=== PATIENT | male | born 1940 | race Caucasian/White ===

== ENCOUNTER 2019-07-08 06:08 | Inpatient (IN) | payer MEDICARE, OTHER, SELFPAY ==
[2019-07-07 12:38] VITALS: BMI 23.6
[2019-07-08] VITALS (31 sets, daily range): BP systolic 81–157; BP diastolic 40–85; PULSE 54–89; RESP 12–20; TEMP 35.6–37.3; O2SAT 93–100; BMI 23.6
--- NOTE | 2019-07-08 | DI.RAD.S_ITS ---
PROCEDURE: XR LUMBAR SPINE 2-3V INDICATIONS: L34, L45 ANT/ POST INSTRUMENTED FUSION W/ BONE GRAFT TECHNIQUE: 2 views of the lumbar spine were acquired. COMPARISON: None. FINDINGS: 2 intraoperative fluoroscopic spot images demonstrate intact transpedicular screws and rods from L3-L5 with disc spacers in place at L3-4 and L4-5. No unexpected fractures. Bone alignment appears normal. IMPRESSION: Expected postoperative change of posterior L3-L5 fusion and disc spacer placement. Dictated by: Lucia Saucedo M.D. on 07/08/2019 at 12:26 Approved by: Lucia Saucedo M.D. on 07/08/2019 at 12:27
[2019-07-08] MEDS: LACTATED RINGERS 1,000 ML 42 ML IV ×3 (06:48→13:36)
--- NOTE | 2019-07-08 07:27 | PM.PREOP ---
Pre-operative Note Interval Note History & Physical reviewed/Exam performed by Physician: Yes Changes to H&P: No
--- NOTE | 2019-07-08 07:49 | P.OP_ITS ---
Operative Date/Time/Diagnoses Date of procedure: 07/08/19 Time of procedure: 12:10 Pre-op diagnosis: Lumbar stenosis with radiculopathy History lumbar laminectomy Post-op diagnosis: same Procedure & Clinicians Procedure: L3-4, L4-5 anterior fusion with cage L3-4, L4-5 posterior fusion L3, L4, L5 screws Iliac crest bone graft L3-4 laminectomy L4-5 revision laminectomy Use of microscope Placement of epidural catheter Same procedure as scheduled: Yes Indications: [age] year old male with intractable pain from stenosis. They had failed conservative management and requested operative intervention. Risks and benefits of surgery were discussed and appropriate consents were obtained. Surgeon: Hal Roberson Senior Technical Editor: Cristina Mcallister Anesthesia Type: General Operative Notes Findings: None Closure Type: primary Specimen(s): none sent Prosthetic devices, grafts, tissues, transplants, or devices: NuVasive MAS Reline screws NuVasive XLIF cages Applied: catheter Blood products transfused: none Procedure in detail: Patient was brought to the operating room and intubated on the table. Time-out was performed. They were then rolled over to the lateral decubitus position with the [id number]. The table was bent and they were taped down in the correct position. X-rays were taken to confirm a true AP and lateral. Preoperative antibiotics were given. The left flank was prepped and draped in standard sterile fashion. Using fluoroscopy, a 3 cm incision was made above the iliac crest. We bluntly dissected down with Metzenbaum scissors and split the 3 abdominal muscle layers. We dissected out the retroperitoneal space and using finger guidance, brought our 1st dilator down to the psoas muscle. Using neuromonitoring and fluoroscopy, we placed it through the psoas onto the L4-5 disc space in an anterior position and gradually pulled the dilator posteriorly along the disc space. We placed our guidewire and measured our depth for the retractor. We then dilated with the next 2 dilators and then placed our retractor over the dilators. Position was confirmed with fluoroscopy and the retractor was locked down to the bar. We opened up the retractor and checked with neuro monitoring. We then placed the michelle and again checked with neuro monitoring. The retractor was opened further and the ALL retractor was placed. An annulotomy was performed. We then performed a complete diskectomy with ring curette, pituitary, box osteotome. A Vogt was advanced across the disc space under fluoroscopy to release the lateral annulus on the opposite side. We then used sequentially larger trials and confirmed under fluoroscopy. An XLIF cage was packed with Osteocell bone graft and impacted into the L4-5 disc space with fluoroscopy for the anterior fusion at this level. The wound was irrigated. The retractor was closed down. The michelle was removed. We carefully removed the retractor with direct visualization to make sure there was no neurovascular or abdominal injury. We then went up to the L3-4 level. We again did dilating and placement of the retractor using neural monitoring and fluoroscopy. We performed a complete anterior diskectomy with lateral release at L3-4. We trialed and then placed another cage with bone graft for the anterior fusion at this level. The wound was irrigated. The retractor was closed down and removed with direct visualization. Final x-rays were taken. The muscle fascia was closed, superficial tissue was closed. The skin was closed. Sterile dressing was placed. The patient was then rolled over on the well-padded prone position on the Terry table. Using fluoroscopy, AP 6 cm incision was made to the left of the midline. Bovie used to split the fascia. We then percutaneously placed Jamshidi needles down the left pedicles of L3, L4, and L5. These were switched out to guidewires, tapped and then the MAS Reline screws were placed, all using neural monitoring and fluoroscopy. We opened up the retractor exposing the L3-5 space. The gutter and lamina were exposed with Bovie. The transverse processes of L3, L4, and L5 were decorticated. We then brought in the microscope. A revision laminectomy was performed at L4-5 with a bur and Kerrison rongeurs. There was medial scar and we could not go much past the midline but completely opened up the left side including the neural foramen. The in the central canal and foramen were open. We then shifted our retractor up to L3-4and performed a L3-4 laminectomy, including the foramen in the entire central canal as we were able to reach across the midline and depress the dura to reach the opposite side. The wound was copiously irrigated. An epidural catheter was primed with 4mL of 0.5% bupivacaine, 100 mcg fentanyl, 4 mg Duramorph, 1 mg Stadol. The dura was depressed under the cephalad lamina with a ball probe and the epidural catheter was gently advanced 6 cm cephalad. The retractor was removed and we then placed our screw heads on. A paige was placed and locked down from L3-5. A small stab incision was made over the PSIS and a Jamshidi needle was placed into the iliac crest and several mL of bone marrow was aspirated. This was mixed with our locally harvested bone graft as well as the remaining Osteocell and placed in the posterolateral gutter for posterior fusion at L3-4 and L4-5. The fascia was then closed. The epidural was then injected without resistance. The catheter was pulled and we closed more over the fascia. We then used fluoroscopy to make a 6 cm incision on the right. Bovie used to split the fascia. We again used fluoroscopy and neuro monitoring to p ercutaneously placed Jamshidi needles down the right pedicles of L3, L4, and L5. These were switched over guidewires, tapped and the MAS Reline screws were placed. A paige was placed and locked down. The wound was irrigated. The fascia was closed. Vancomycin powder was placed in the wounds. The superficial and skin were closed. Sterile dressing was placed. The patient was then rolled over, e xtubated, brought to the recovery room with no complications. Complications: none Condition: stable Disposition: PACU Plan for aftercare: Inpatient. Up with therapy.
[2019-07-08] MEDS: CEFAZOLIN 2 GM/100 ML FROZ.PIGGY IV ×3 (08:03→20:47)
--- NOTE | 2019-07-08 08:52 | SUR.OPER ---
Right lateral on padded OR table. Head on pillow, gel axillary roll, pillow to support left arm. Legs flexed, pillows between legs, gel pad under down leg and ankle. Multiple passes of 3 inch cloth tape across shoulder, hip, upper and lower legs to secure patient on OR table.
--- NOTE | 2019-07-08 08:53 | SUR.OPER ---
part 2:Prone on spine table, head in foam head support, padded chest and pelvic supports, gel pad at knees, lower legs supported by pillows; nipples, genitalia and toes free of pressure, arms secured on foam padded arm boards at <90 degrees abduction. Tape over blanket at thigh secured to table.
[2019-07-08] MEDS: SODIUM CHLORIDE 0.9% 1,000 ML, GENTAMICIN 80 MG IRR ×2 (09:22→10:42)
[2019-07-08] MEDS: BUPIVACAINE 0.5% (PF) 4 ML, MORPHINE-PF 4 MG, BUTORPHANOL 1 MG, fentaNYL 100 MCG INJ (09:23)
[2019-07-08] MEDS: THROMBIN (RECOMBINANT) 5,000 UNIT VIAL 5000 UNIT TOP (09:24)
[2019-07-08] MEDS: VANCOMYCIN 1,000 MG VIAL 1000 MG TOP (09:24)
[2019-07-08] MEDS: LORazepam 2 MG/ML INJ 0.25 MG IV (13:16)
[2019-07-08] MEDS: hydrOXYzine 50 MG/ML INJ 25 MG IM (13:21)
--- NOTE | 2019-07-08 13:27 | SUR.PHASEI ---
Still with marginal BPs related to preop. Recd Dr Da trinh. Mostly sleeping but when awake is with some obvious discomfort. Taking care not to cause circulatory compromise with opiod. Remains in PACU due to VSS. Mer between 7&8.
[2019-07-08] MEDS: fentaNYL 100 MCG/2 ML INJ 50 MCG IV (13:32)
--- NOTE | 2019-07-08 14:29 | PC.NURSE ---
Day Shift-awaiting pt to arrive from PACU, pt's son Jeff in room 217, update given at 1233, pt in PACU for approx 10 mins, Jeff updated by Dr. Roberson in waiting room prior to coming to unit. At 1355, pt's son Jeff updated again as well as VIRIDIANA Herring Coordinator updated Jeff, pt will go to ICU overnight room 104.
[2019-07-08] MEDS: LACTATED RINGERS 1,000 ML 125 ML IV ×2 (14:57→22:43)
--- NOTE | 2019-07-08 14:58 | PC.NURSE ---
pt received from pacu- pt very groggy and will occassionally moan but quickly fall back to sleep- he does not respond verbally as of yet- LR at 125cc/h initiated, , pt preferring to be on left side- dressing to lower left hip area is cdi (graft site) AND CIRCLED APPROX 3CM AREA OF RED DRAINAGE TO LOWER BACK DRESSING- PT DOES HAVE CARDIAC HX AND IS PRESENTLY IN SB WITH BB- SON IS AT BEDSIDE
[2019-07-08] MEDS: HYDROMORPHONE 0.5 MG INJ IV ×4 (15:05→21:15)
--- NOTE | 2019-07-08 15:54 | PT.IPTN ---
Current Diagnoses Spondylolisthesis, lumbar region (07/08/19) Spinal stenosis, lumbar region with neurogenic claudication (07/08/19) Other specified postprocedural states (07/08/19) Surgery Performed Operation Date: 07/08/19 07:45 Actual Procedures p L34, L45 anterior & posterior instrumented fusion w/ bone graft. L34 laminectomy, L45 revision laminectomy - Hal Roberson MD Physical Therapy Treatment Note M3 PT-IP Subjective Start: 07/08/19 15:53 Freq: NEEDED Status: Active Protocol: Document 07/08/19 15:54 [facility] (Rec: 07/08/19 15:54 [facility] [email or web address]) Subjective Physical Therapy Visit Type Type Administrative Note Notes Called RN and they said not appropriate for PT tonight. Pt just got to floor recently and is hurting a lot right now . Re-assess in AM.
[2019-07-08] MEDS: GABAPENTIN 600 MG TABLET PO ×2 (16:13→21:02)
[2019-07-08] MEDS: HYDROMORPHONE 2 MG TABLET PO (16:13)
--- NOTE | 2019-07-08 16:18 | PC.NURSE ---
Addendum entered by Blanca Vail R.N. 07/08/19 23:04: Pt's son called for updates. Completed admission assessment over the phone. All updates given and questions answered. Addendum entered by Blanca Vail R.N. 07/08/19 22:45: Pt sleeping soundly. HR 77, BP 132/59. CPAP on from home. 95% Sats. IVF continues at 125cc/hr via 20g left hand. SCDs on and oral care given. Addendum entered by Blanca Vail R.N. 07/08/19 21:32: Pt repositioned and turned. States he is more comfortable now than before, but unable to rate pain. Pt groggy. Oral care given. Son at bedside and left at 21:05. Answered all questions for son. Discussed plan for tomorrow with PT, pain control for the evening, father's bucio catheter, CPAP, vital signs, adn wound. Dressing changed on back-saturated with sanguinous output. Surgeon ok'd change if saturated. no s/s infection to two incisions- left vaseline gauze in place, placed 3 4x4 on top with large tegaderm and dated/timed. iliac crest site c/d/i with primary dressing intact. Pt has apple juice/cider from son from home in pt fridge. Used for giving medications. Tolerated pills with no issue. Held Sen, pt drowsy. Addendum entered by Blanca Vail R.N. 07/08/19 20:02: [address] home CPAP. Satting 98%. Pt nodded head his pain is improved. Still very sleepy. Addendum entered by Blanca Vail R.N. 07/08/19 19:09: Pt sleeping soundly. HR 90, BP 119/51. 100% on 2LNC. Wakes up to voice and states his pain is better but unable to rate 1-10. Falls asleep while speaking with staff. Turned and rotated to right side with ice pack on incision and pillow supporting length of body. Pillow placed between knees. Addendum entered by Blanca Vail R.N. 07/08/19 17:38: Pt sleeping soundly now after PO Dilaudid, 2nd dose of 0.5mg IV Dilaudid and PO Hydroxyzine. Appears much more comfortable, no wincing, slightly repositioning himself in bed. Occassional moans. HR77, Satting 100% on 2LNC now. Nasal cannula placed after patient had second dose of IV Dilaudid. Sats decreasing to 88 after administration. Original Note: Pt sleeping comfortably with HR 60s adn BP 140s/60s. When woken up for assessment or meds, pt able to verbalize his pain is a 10/10. Repositioned to right side via log roll- ice pack applied to surgical site and pillow placed under back. Given PO Dilaudid as well. Will continue to assess and treat pain. Pt verbalized understandign of pain plan. Surgeon at bedside at 15:45.
[2019-07-08] MEDS: hydrOXYzine pamoate 25 MG CAPSULE PO (16:55)
[2019-07-08] MEDS: DOCUSATE 100 MG CAPSULE PO (21:02)
[2019-07-08] MEDS: AMLODIPINE 5 MG TABLET PO (21:02)
[2019-07-08] MEDS: ATORVASTATIN 20 MG TABLET PO (21:02)
[2019-07-08] MEDS: SENNOSIDES 8.6 MG TABLET 17.2 MG PO (21:03)
[2019-07-09] VITALS (8 sets, daily range): BP systolic 94–161; BP diastolic 43–72; PULSE 68–86; RESP 14–18; TEMP 36.8–38.1; O2SAT 92–98; BMI 23.6
[2019-07-09] MEDS: HYDROMORPHONE 0.5 MG INJ IV ×4 (00:07→11:46)
[2019-07-09] MEDS: CEFAZOLIN 2 GM/100 ML FROZ.PIGGY IV (03:43)
--- NOTE | 2019-07-09 03:51 | PC.NURSE ---
NOC Shift: POD 1 post LAMI. Pt sleeping well with home CPAP, needed O2 supplement when sleeping for sats less than 90. Pt sleeps well until woken up, states when awake his pain is 10/10 yet falls right to sleep in mid sentence. Will give IV pain med when more awake. VSS, SR on tele. Neuro intact. Dsgs CDI.
[2019-07-09] MEDS: hydrOXYzine pamoate 25 MG CAPSULE PO ×2 (04:01→18:18)
[2019-07-09 06:20] LABS: Hematocrit 36.1 % (41-53); Hemoglobin 12.6 g/dL (13.5-17.5)
--- NOTE | 2019-07-09 07:45 | PM.PNPO.1 ---
Subjective Subjective Date Patient Seen: 07/09/19 Time Patient Seen: 07:45 Interval history: Severe pain overnight, but gets sedated with any medication. Almost all back pain. Exam Vital Signs (past 8 hours): - 07/09/19 00:07 07/09/19 00:11 07/09/19 03:32 Temperature 99.1 F 99.1 F 98.2 F Pulse Rate 78 76 Respiratory Rate 14 16 Blood Pressure 140/62 124/65 Pulse Oximetry 94 98 Oxygen Delivery Method CPAP Oxygen Flow Rate 2 Const Orientation: alert and oriented x3 Back/Spine/Pelvis Other: dry moderate drainage on left side of wound, 5/5 motor BLE except 4/5 B hip flexors limited by back pain Objective Labs Result Diagrams: 07/09/19 04:51 Labs: Laboratory Results - last 24 hr 07/08/19 07/09/19 14:30 04:51 Hgb 12.6 L Hct 36.1 L Nasal Screen MRSA (PCR) Negative for mrsa Assessment & Plan Post-op Postoperative Procedures: Procedures Operation Date: 07/08/19 07:45 Actual Procedures Side Surgeon p L34, L45 anterior & posterior instrumented fusion w/ bone graft. L34 laminectomy, L45 revision laminectomy Hal Roberson MD Stable, mobilize with PT today.
[2019-07-09] MEDS: HYDROMORPHONE 2 MG TABLET PO (08:34)
[2019-07-09] MEDS: DOCUSATE 100 MG CAPSULE PO ×2 (08:37→21:04)
[2019-07-09] MEDS: GABAPENTIN 600 MG TABLET PO ×3 (08:37→21:04)
--- NOTE | 2019-07-09 10:35 | PT.IIE ---
Current Diagnoses Spondylolisthesis, lumbar region (07/08/19) Spinal stenosis, lumbar region with neurogenic claudication (07/08/19) Other specified postprocedural states (07/08/19) Surgery Performed Operation Date: 07/08/19 07:45 Actual Procedures p L34, L45 anterior & posterior instrumented fusion w/ bone graft. L34 laminectomy, L45 revision laminectomy - Hal Roberson MD Surgical History (Last Updated 07/07/19 @ 13:19 by Sanjuanita Ac RN) H/O: vasectomy (Acute) History of lumbar laminectomy (Acute ~2008) Hx of colonoscopy (Acute 04/09/19) Hx of right inguinal hernia repair (Acute) Hx of right knee surgery (Acute ~1972) Hx of tonsillectomy (Acute) Medical History (Last Updated 07/07/19 @ 13:44 by Sanjuanita Ac RN) Anxiety about health (Acute) Arthritis (Acute) Asthma (Acute) CAD (coronary artery disease) (Acute) Carotid artery stenosis (Acute) Dizziness (Acute) Easy bruisability (Acute) Edema (Acute) Epididymitis (Acute) GERD (gastroesophageal reflux disease) (Acute) Headache (Acute) Heart murmur (Acute) HLD (hyperlipidemia) (Acute) HTN (hypertension) (Acute) LBBB (left bundle branch block) (Acute) Lower back pain (Acute) Numbness and tingling (Acute) RANGEL on CPAP (Acute) Seasonal allergies (Acute) Syncope (Acute) Testicular pain (Acute) TIA (transient ischemic attack) (Acute) Physical Therapy Inpatient Evaluation/Re-Eval M1 PT/OT-IP Prior Functional Status Start: 07/08/19 15:53 Freq: NEEDED Status: Active Protocol: Document 07/09/19 17:21 (Rec: 07/09/19 18:04 [email or web address]) Medical Review Prior Functional Status Medical History Reviewed Yes Diet/Fluid Consistency Regular Communication able to make needs known. no communication deficits noted. Mobility and Gait Pt's son stated pt was an independent ambulator at home and community without AD. However, his LBP and leg weakness have gotten worse since a month ago that he had to start using furniture/wall/ his son for support recently. He also had difficulty getting up from chair Activities of Daily Living and IADL's Pt's stated pt is independent with ADLs but did need assistance sometimes recently due to worsening back pain. He also started to use sponge bath recently as well. His son also assists in grocery shop and laundry. Social History Household Members children Living Arrangements House Number of Floors (Floors) Two Floors Number of Stairs To Enter/Railing? pt lives on 2nd floor with outdoor stair access only. 12 steps to get to second floor with rails on L Home Environment Standard Height Toilet,Tub/ Shower Employment Status Retired Additional Social History Comment Pt lives with his son Jeff. Jeff works musician instrumental but he stated that pt was independent when he is at work . Jeff will be able to few days off if pt able to return home. M1 PT/OT-IP Prior Functional Status Start: 07/09/19 17:20 Freq: NEEDED Status: Active Protocol: Document 07/09/19 17:20 [facility] (Rec: 07/09/19 17:46 [facility] [id number]) Medical Review Prior Functional Status Medical History Reviewed Yes Communication Independent. Mobility and Gait Independent and did not use any devices. Pt states lately prior to surgery would furniture walk and probably should have been using a device to assist to walk. Pt states would use momentum to help get out of his recliner. When going outside would hold onto his son to walk. Activities of Daily Living and IADL's Pt states able to do all ADl's , however lately just sponge bathes as not able to get into his tub/shower. Social History Household Members children Living Arrangements House Number of Floors (Floors) Two Floors Number of Stairs To Enter/Railing? Pt staets has 20 steps with left hand rail to get up to the deck and tend in to his house. Pt's son states more like 12 steps, however from the car to steps is uneven ground of gravel to walk over. Home Environment Standard Height Toilet,Tub/ Shower M2 PT-IP Current Condition Start: 07/08/19 15:53 Freq: NEEDED Status: Active Protocol: Document 07/09/19 17:21 (Rec: 07/09/19 18:04 [email or web address]) Physical Therapy Current Condition Current Condition Evaluation Date 07/09/19 Treatment Diagnosis L34, L45 XLIF, L34 laminectomy , L45 revision lamiectomy Onset Date 07/08/19 Precautions Lumbar Precautions Log Roll,No Twisting,Limit Bending,Lifting Restriction of 10 lbs,Gait Belt above Incisional Area Weight Bearing Status Weight Bearing Status Weight Bear as Tolerated M3 PT-IP Subjective Start: 07/08/19 15:53 Freq: NEEDED Status: Active Protocol: Document 07/09/19 17:21 (Rec: 07/09/19 18:04 [email or web address]) Subjective Physical Therapy Visit Type Type Initial Evaluation Visit Start Time 10:35 Visit Stop Time 11:44 Total Visit Minutes 69 Notes Per RN, pt has been groggy who just received pain medication . He has been c/o severe pain up to 07/22. Son attended session and answered questions . Co-tx with JARAD Luis this session. Number of CLASSIFICATIONS OFFICER CC/CM Visits 0 Physical Therapy Visit Comments Patient Comments Its very very painful on my back. Patient Goals To return home with son Therapy Pain Assessment Pain When Pain Assessed During Mobility Pain Present Pain Present Pain Reported Location Lower Back Intensity 8 Scale Used Numeric (1 - 10) Description Acute Pain Behaviors Calling Out,Facial Grimacing, Guarding,Holding Area Pain Management Techniques Apply Cold,Modification of Treatment,Timing of Activity with Medications M4 PT-IP Mobility and Gait Start: 07/08/19 15:53 Freq: NEEDED Status: Active Protocol: Document 07/09/19 17:21 (Rec: 07/09/19 18:04 [email or web address]) PT-Bed Mobility Assessment Rolling Type of Rolling Log Rolling,Roll to Left Level of Assist Moderate Assistance,2 Person Assistance Supine to Sit Supine to Sit Maximum Assistance,2 Person Assistance Sit to Supine Sit to Supine Maximum Assistance,2 Person Assistance Scooting Scooting to Edge of Bed Maximum Assistance Scooting Up and Down in Bed Maximum Assistance PT-Transfer Assessment Comments Mobility Comments BP in supine = 120s/60s, sitting = 90s/40s, back in supine =160s/70s. Pt was in supine upon assessment. He was calling out pain with every movements that involves his low back. Pt was unable to perform full heel slides and demonstrated weakness through supine leg press against therapist. He required assistance to placed his feet on bed for log roll and max x 2pa for supine to sit and scooting in bed/EOB. Pt was unable to sit upright unsupported and cont to lean posteriorly to the right. Needed manual support and constant cues to facilitate his abdominal engagement. Pt c /o dizziness and weakness, and his blood pressure remained at 90s/40s after 8 mins in seated position. Pt was then assisted returning to supine with max A. Call light within reach, bed alarm activated and HOB elevated. His BP went up to 161/72 after and reported to nursing. RN Mackenzie requested to call Dr. Roberson regarding pt's pain level and medication management. Gait Assessment Comments Gait Comments unable to assess Stair Climbing Assessment Comments Stair Climbing Comments unable to assess PT-Balance Assessment Sitting Balance and Reactions Static Sitting Balance Ability Fair Dynamic Sitting Balance Ability Poor M5 PT-IP Objective Assessments Start: 07/08/19 15:53 Freq: NEEDED Status: Active Protocol: Document 07/09/19 17:21 (Rec: 07/09/19 18:04 [email or web address]) Orientation Orientation/Cognition Level of Alertness Lethargic Orientation Name,Age,Birthday,Month,Date, Year,Day of Week,Place, Situation Language Function Ability No Deficits Noted Safety Awareness Decreased Safety Awareness Memory Description No Deficits Noted Comments Pt was groggy and forgetful. Gross Range of Motion Upper Extremity ROM Assessment Bilaterally Impaired Impairments unable to reach overhead Lower Extremity ROM Assessment Bilaterally Impaired Impairments unable to do heel slide Strength Upper Extremity Strength Assessment Bilaterally Impaired Shoulder 3-/5 Lower Extremity Strength Assessment Bilaterally Impaired Hip 3-/5 Knee 3-/5 M6 PT-IP Treatment Start: 07/08/19 15:53 Freq: NEEDED Status: Active Protocol: Document 07/09/19 17:21 [facility] (Rec: 07/09/19 18:04 [email or web address]) Physical Therapy Treatment Exercises Exercises Quad Sets,Heel Slides Education Education Provided Precautions,Weight Bearing Status,Post-Op Packet,Safety M7 PT-IP Assessment and Plan Start: 07/08/19 15:53 Freq: NEEDED Status: Active Protocol: Document 07/09/19 17:21 [facility] (Rec: 07/09/19 18:04 [email or web address]) PT Summary Assessment and Plan Potential Rehabilitation Potential Good Status of Condition at Evaluation Evolving Summary Impairments Pain,ROM,Strength,Balance, Cognition,Bed Mobility, Transfers,Gait,Activity Tolerance Assessment Summary Pt is a high complexity due to his post operative response with significant amount of pain and lethargic cognitive stage. Pt's son attended session and concern about amount of pain and also mental status changes with using both PO + IVP Dilaudid. Upon assessment, pt was very groggy and forgetful. He also had difficulty following directions and required simple 1 step commands for mobility. pt required extensive assistance with 2p for bed mobility and supine to sit. Pt was unable to sit unsupportedly and significant weakness on both UEs and LEs noted. Pt experienced hypotension (90s/40s) upon sitting but returned to 160s/ 80s in supine position. Notified RN Mackenzie and she is going to speak with Dr. Roberson regarding pt's status . Discussed with pt's son Jeff regarding pt's current need for rehab in SNF to improve his overall mobility and strength. Goals Bed Mobility Goal Minimal Assistance Transfer Goal Minimal Assistance,Front Wheeled Walker Gait Goal Minimal Assistance,Front Wheel Walker Gait Distance 50 Other Goals Pt has 12 steps to enter 2nd floor with L rail Days to Meet Goals 10 Frequency of Treatment Frequency Of Treatment Twice a Day Treatment Plan Physical Therapy Treatment Plan Bed Mobility Training,Transfer Training,Gait Training, Therapeutic Exercise,Balance Retraining,Post Op Education, Discharge Planning,Hot or Cold Pack,Neuromuscular Re-ed Other Recommendations and Next Treatment monitor vss closely Focus bed mob, transfer as rojelio review precautions Recommendations To Nursing Amount of Assist Needed PT/OT Assist Only Discharge Recommendations PT Discharge Recommendations SNF Rehab Equipment Needed for Home Before if go home: FWW, shower bench, Discharge raised toilet seat.
--- NOTE | 2019-07-09 12:02 | PC.NURSE ---
Addendum entered by Mackenzie Catherine R.N. 07/09/19 15:09: 1500-Enc PO intake, Ensure given, Pt accepts with PO meds, no difficulty. Apprenticeship Consultant into see Pt for poor josselin score. Pt mentation is better this afternoon, Updated POC to include change in pain meds. Addendum entered by Mackenzie Catherine R.N. 07/09/19 14:24: 1400-Pt Not actively turning in bed, will initiate turning schedule q2, POC updated, Drainage to back dressing outlined, and noted approx 3cm area of blanchable redness to bony prominence of spine/just above coccyx. Marked, offloaded pressure. Turn schedule. Diet consult ordered. Enc deep breathing and coughing, Pt needs significant engourement for this Spo2 93% RA, home CPAP at bedside. Original Note: 11Pain control issues Son at bedside during PT, concerns with amount of pain and also mental status changes with using both PO + IVP Dilaudid, Pt is forgetful, and nodding off mid-sentance during assessment by this RN. Minimal work with PT d/t pain control and hypotension while sitting up at the bedside. PT reports total assist needed. Dressing on back assessed and shadow drainage noted, will monitor for changes. Rec'd orders from Dr Roberson. See MAR
[2019-07-09] MEDS: ASPIRIN 325 MG TABLET PO (12:29)
--- NOTE | 2019-07-09 14:30 | PT.IPTN ---
Current Diagnoses Spondylolisthesis, lumbar region (07/08/19) Spinal stenosis, lumbar region with neurogenic claudication (07/08/19) Other specified postprocedural states (07/08/19) Surgery Performed Operation Date: 07/08/19 07:45 Actual Procedures p L34, L45 anterior & posterior instrumented fusion w/ bone graft. L34 laminectomy, L45 revision laminectomy - Hal Roberson MD Physical Therapy Treatment Note M3 PT-IP Subjective Start: 07/08/19 15:53 Freq: NEEDED Status: Active Protocol: Document 07/09/19 16:30 GGD (Rec: 07/09/19 16:37 GGD [email or web address]) Subjective Physical Therapy Visit Type Type Treatment Note Visit Start Time 14:12 Visit Stop Time 14:28 Total Visit Minutes 14 Physical Therapy Visit Comments Patient Comments Pt states he is a lot pain. Therapy Pain Assessment Pain When Pain Assessed At Rest Pain Present Pain Present Pain Reported Location Lower Back Intensity 4 Scale Used Numeric (1 - 10) M4 PT-IP Mobility and Gait Start: 07/08/19 15:53 Freq: NEEDED Status: Active Protocol: Document 07/09/19 16:30 GGD (Rec: 07/09/19 16:37 GGD [email or web address]) PT-Bed Mobility Assessment Rolling Type of Rolling Log Rolling,Roll to Right Level of Assist Moderate Assistance Supine to Sit Supine to Sit Maximum Assistance,1 Person Assistance,Bedrails Sit to Supine Sit to Supine Moderate Assistance,1 Person Assistance,Bedrails Scooting Scooting to Edge of Bed Dependent PT-Transfer Assessment Comments Mobility Comments Unable Pt needed min to Mod A for EOB sitting balance. PT-Balance Assessment Sitting Balance and Reactions Static Sitting Balance Ability Poor M7 PT-IP Assessment and Plan Start: 07/08/19 15:53 Freq: NEEDED Status: Active Protocol: Document 07/09/19 16:30 GGD (Rec: 07/09/19 16:37 GGD [email or web address]) PT Summary Assessment and Plan Summary Assessment Summary Pt needed mod to max a for mobility. He had difficulty following directions. He was unable to recall precautions. He need assist for sitting balance and unable support self after cues. Frequency of Treatment Frequency Of Treatment Twice a Day Treatment Plan Physical Therapy Treatment Plan Bed Mobility Training,Transfer Training,Gait Training, Therapeutic Exercise,Post Op Education,Discharge Planning Other Recommendations and Next Treatment bed mobility, transfers and Focus gait when able Recommendations To Nursing Amount of Assist Needed PT/OT Assist Only Discharge Recommendations PT Discharge Recommendations SNF Rehab
[2019-07-09] MEDS: LACTATED RINGERS 1,000 ML 125 ML IV ×2 (14:35→22:11)
[2019-07-09] MEDS: ACETAMINOPHEN 325 MG TABLET 975 MG PO ×2 (14:42→18:17)
[2019-07-09] MEDS: MELOXICAM 7.5 MG TABLET PO ×2 (14:43→21:04)
--- NOTE | 2019-07-09 14:48 | CM.IDA ---
Initial DCP Assessment Note: Pt is an 79 yo male, resident of [place]. Pt POD#1 from spinal surgery w/Dr Roberson. PCP: Stacy Anguiano Payer: Medicare/Commercial Reviewed chart. Pt has complained of a lot of pain post operatively, today, nursing note indicates pt is groggy, forgetful, and not actively turning himself in bed. Supportive son Jeff at bedside. Son present for PT/OT sessions. OT Janelle reported pt will likely benefit from SNF, son agrees at this time. This SECURITIES SUPERVISOR following closely and will plan to complete thorough bedside assessment w/in the next 24 hrs to help determine safest DCP. ALEJANDRO Russell Discharge Planning/Care Management CM Discharge Assessment Start: 07/09/19 14:44 Freq: Status: Active Protocol: Document 07/09/19 14:44 BARON (Rec: 07/09/19 14:48 BARON [email or web address]) Discharge Planning Assessment Assigned Bobbin Doffer ALEJANDRO Conte DPOA/Assigned Designee Name Jeff (son) Contact Information [phone] Advance Directives? No History Provided By Patient,Family Member,Medical Record Prior Living Arrangements House Household Members children Type of transporation used prior to Drives own vehicle admit Willing to Return to Facility? Yes Independent with ADL's Yes Is patient alert and oriented? Yes Patient/Family Preference Longterm Facility Barriers to Discharge Yes Comment Pain and weakness s/p spinal surgery Discharge Plan Longterm Facility Referrals Initiated Longterm Review Status In Process
--- NOTE | 2019-07-09 17:46 | OT.IP.EVAL ---
Current Diagnoses Spondylolisthesis, lumbar region (07/08/19) Spinal stenosis, lumbar region with neurogenic claudication (07/08/19) Other specified postprocedural states (07/08/19) Surgery Performed Operation Date: 07/08/19 07:45 Actual Procedures p L34, L45 anterior & posterior instrumented fusion w/ bone graft. L34 laminectomy, L45 revision laminectomy - Hal Roberson MD Past Medical History (Last Updated 07/07/19 @ 13:44 by Sanjuanita Ac RN) Anxiety about health (Acute) Arthritis (Acute) Asthma (Acute) CAD (coronary artery disease) (Acute) Carotid artery stenosis (Acute) Dizziness (Acute) Easy bruisability (Acute) Edema (Acute) Epididymitis (Acute) GERD (gastroesophageal reflux disease) (Acute) Headache (Acute) Heart murmur (Acute) HLD (hyperlipidemia) (Acute) HTN (hypertension) (Acute) LBBB (left bundle branch block) (Acute) Lower back pain (Acute) Numbness and tingling (Acute) RANGEL on CPAP (Acute) Seasonal allergies (Acute) Syncope (Acute) Testicular pain (Acute) TIA (transient ischemic attack) (Acute) Surgical History (Last Updated 07/07/19 @ 13:19 by Sanjuanita Ac RN) H/O: vasectomy (Acute) History of lumbar laminectomy (Acute ~2008) Hx of colonoscopy (Acute 04/09/19) Hx of right inguinal hernia repair (Acute) Hx of right knee surgery (Acute ~1972) Hx of tonsillectomy (Acute) Occupational Therapy Inpatient Evaluation/Re-Eval M1 PT/OT-IP Prior Functional Status Start: 07/09/19 17:20 Freq: NEEDED Status: Active Protocol: Document 07/09/19 17:20 [facility] (Rec: 07/09/19 17:46 [facility] [email or web address]) Medical Review Prior Functional Status Medical History Reviewed Yes Communication Independent. Mobility and Gait Independent and did not use any devices. Pt states lately prior to surgery would furniture walk and probably should have been using a device to assist to walk. Pt states would use momentum to help get out of his recliner. When going outside would hold onto his son to walk. Activities of Daily Living and IADL's Pt states able to do all ADl's , however lately just sponge bathes as not able to get into his tub/shower. Social History Household Members children Living Arrangements House Number of Floors (Floors) Two Floors Number of Stairs To Enter/Railing? Pt states has 20 steps with left hand rail to get up to the deck and tend in to his house. Pt's son states more like 12 steps, however from the car to steps is uneven ground of gravel to walk over. Home Environment Standard Height Toilet,Tub/ Shower M2 OT-IP Current Condition Start: 07/09/19 17:20 Freq: Status: Active Protocol: Document 07/09/19 17:20 [facility] (Rec: 07/09/19 17:46 [facility] [email or web address]) Occupational Therapy Current Condition Current Condition Evaluation Date 07/09/19 Treatment Diagnosis Lumbar stenosis with radiculopathy, S/P L3-4, L4-5 ant & post instr. fusion Diagnosis Onset Date 07/08/19 Post Operative Precautions Lumbar Precautions Log Roll,No Twisting,Limit Bending,Lifting Restriction of 10 lbs,Gait Belt above Incisional Area Weight Bearing Status Weight Bearing Status Weight Bear as Tolerated M3 OT- IP Subjective and Pain Start: 07/09/19 17:20 Freq: Status: Active Protocol: Document 07/09/19 17:20 [facility] (Rec: 07/09/19 17:46 [facility] [email or web address]) OT- Subjective Occupational Therapy Visit Type Type Initial Evaluation Visit Start Time 10:34 Visit Stop Time 11:24 Total Visit Minutes 50 Occupational Therapy Visit Comments Patient Comments Pt very groogy but willing to try to get up. Pt a bit frustrated that he is having so much pain. PT present for OT eval due to extensive need for assist for mobility needs at this time. Patient/Caregiver Goals Pt wanting to go home but family aware will most likely have to go to [facility] rehab prior to going home. OT Pain Assessment Pain When Pain Assessed During Mobility Pain Present Pain Present Pain Reported M4 OT- IP ADL's Start: 07/09/19 17:20 Freq: Status: Active Protocol: Document 07/09/19 17:20 [facility] (Rec: 07/09/19 17:46 [facility] [email or web address]) OT HQN-Pohq-Diefdpw Comments OT Self-Feeding Comments Pt taking a sip out of water bottle and noted coughing afterwards, nursing notified. OT ADL-Grooming Comments OT Grooming Comments Pt needing assist to put in hearing aids, intially not able to see chap stick and after placing in his hands able to put chap stick on his lips. OT ADL-Dressing General Eval Lower Body Dressing Ability Maximum Assistance Areas Needing Assistance Socks OT ADL-Toileting Comments OT Toileting Comments Pt has catheter in. OT ADL-Bathing Comments OT Bathing Comments Not at this time. M5 OT- IP IADL's Start: 07/09/19 17:20 Freq: Status: Active Protocol: Document 07/09/19 17:20 [facility] (Rec: 07/09/19 17:46 [facility] [email or web address]) OT-Instrumental Activities of Daily Living Home Safety Awareness Home Safety Comments Prior pt per son completely independent with all needs , however pt now very groogy and having difficulty to follow directions. M6 OT- IP Functional Cognition Start: 07/09/19 17:20 Freq: Status: Active Protocol: Document 07/09/19 17:20 [facility] (Rec: 07/09/19 17:46 [facility] [email or web address]) Cognitive Factors Limiting Selfcare Function Cognitive Ability Level of Alertness Drowsy Patient Orientation Name Attention Span Ability Capable of Focused Attention, Unable to Sustain Attention Ability to Follow Commands Able to Follow One Step Commands with Increased Time, Able to Follow One Step Commands with Repetition Cognitive Comments Cognitive Assessment Comments Pt very groggy and having difficulty to follow directions and needed step by step simple commands. OT- Vision and Hearing OT- Hearing Assessment OT- Hearing Assessment Use of Hearing Aids OT- Vision Assessment Vision Assessment Comments Pt noted decreased depth perception and reaching for therapist finger versus chap stick. Pt very groggy and sleepy therefore may also be influencing his vision at this time. M7 OT- IP Mobility and Balance Start: 07/09/19 17:20 Freq: Status: Active Protocol: Document 07/09/19 17:20 [facility] (Rec: 07/09/19 17:46 [facility] [email or web address]) OT- Bed Mobility Assessment Rolling Level of Assistance Maximum Assistance,2 Person Assistance,Bedrails Supine to Sit Supine to Sit Assist Maximum Assistance,2 Person Assistance Sit to Supine Sit to Supine Assist Maximum Assistance,2 Person Assistance Scooting Scooting to Edge of Bed Maximum Assistance,2 Person Assistance Scooting Up and Down in Bed Maximum Assistance,2 Person Assistance OT-Transfer Assessment Comments Mobility Comments MAX A x 2 for bed mobility needs assist to help with his trunk and legs. Pt needing MODA to help sit upright and starting to feel dizzy and BP decreased 85/46. Assisted pt to get back in to bed and help to reposition pt with pillows . BP increased to 160/80 in supine. OT- Balance Assessment Sitting Balance and Reactions Static Sitting Balance Ability Poor Dynamic Sitting Balance Ability Poor M8 OT- IP Objective Assessments Start: 07/09/19 17:20 Freq: Status: Active Protocol: Document 07/09/19 17:20 [facility] (Rec: 07/09/19 17:46 [facility] [email or web address]) OT Gross Range of Motion Upper Extremity Range of Motion ROM Impairments Not able to fully assess at this time. Comments Strength Comments Not able to fully assess at this time. OT-Muscle Tone Assessment Muscle Tone WNL Yes M9 OT- IP Assessment and Plan Start: 07/09/19 17:20 Freq: Status: Active Protocol: Document 07/09/19 17:20 [facility] (Rec: 07/09/19 17:46 [facility] [email or web address]) OT Summary Assessment and Plan Potential Rehabilitation Potential Fair Analytic Complexity at Evaluation Low Summary OT Impairments Pain,Strength,Balance, Functional Cognition, Functional Mobility,Self- Feeding,Grooming,Dressing, Toileting,Bathing,Toilet Transfers,Shower Transfers Progress Towards Goals Slow Progress due to Pain,Slow Progress due to Medical Issues,Slow Progress due to Activity Tolerance,Slow Progress due to Cognition Assessment Summary Pt low complexity and main barriers are steps, pain, and now needing extensive assist x2 for all needs and only able to tolerate sitting to the edge of the bed at this time. Pt's son works during the day and pt far from baseline of being MOD I with all needs. Pt will benefit from [facility] rehab prior to going home. Goals Self-Feeding Goal Standby Assistance Grooming Goal Minimal Assistance Dressing Goal Moderate Assistance Toileting Goal Moderate Assistance Bathing Goal Moderate Assistance Toilet Transfer Goal Moderate Assistance Shower Transfer Goal Moderate Assistance Patient/Caregiver Education Goal Caregiver Independent Assisting Patient OT-Other Goals Grooming goal in standing with FWW. Days to Meet Goals 10 Frequency of Treatment Frequency Of Treatment Once a Day Treatment Plan OT Treatment Plan ADL Training,Functional Cognition Training,Functional Mobility,Patient/Family Education,Discharge Planning Other Treatment Recommendations and Next Transfer with FWW with MODA X Treatment Focus 2 to BSC. Discharge Recommendations OT Discharge Recommendations SNF Rehab Home Equipment Needs Defer to SNF.
[2019-07-09] MEDS: OXYCODONE IR 10 MG TABLET PO (18:18)
[2019-07-09] MEDS: ATORVASTATIN 20 MG TABLET PO (21:04)
[2019-07-09] MEDS: SENNOSIDES 8.6 MG TABLET 17.2 MG PO (21:04)
[2019-07-10] VITALS (7 sets, daily range): BP systolic 109–160; BP diastolic 59–86; PULSE 68–86; RESP 16–20; TEMP 36.8–38; O2SAT 92–94
[2019-07-10] MEDS: ACETAMINOPHEN 325 MG TABLET 975 MG PO ×3 (01:25→20:56)
[2019-07-10] MEDS: hydrOXYzine pamoate 25 MG CAPSULE PO (01:26)
[2019-07-10] MEDS: OXYCODONE IR 10 MG TABLET PO ×3 (01:26→16:39)
--- NOTE | 2019-07-10 01:49 | PC.NURSE ---
Solder Cream Maker Note: 0000: Awake, resting in bed. Vital signs stable. IV in place in rt wrist with LR infusing at 125cc/hr. Dressing to lower back intact, with shadow of old drainage. Home CPAP on, with O2 bleed-in of 2L. SCDs on. 0120: Pt having pain in lower back. Medicated for pain with Oxycodone and Vistaril.
[2019-07-10] MEDS: LACTATED RINGERS 1,000 ML 125 ML IV (06:26)
--- NOTE | 2019-07-10 08:05 | P.PN_ITS ---
Subjective Subjective Date Patient Seen: 07/10/19 Time Patient Seen: 08:05 Interval history: He did better with pain control on the oxycodone. However, he is still somewhat confused. He has been very slow to mobilize and yesterday therapy could only get him to sit by the side of the bed. He complains of significant pain across the lower back. Exam Vital Signs (past 8 hours): - 07/10/19 00:27 07/10/19 04:30 07/10/19 07:31 Temperature 98.8 F 98.8 F 100.4 F H Pulse Rate 68 71 69 Respiratory Rate 20 20 18 Blood Pressure 136/86 109/65 144/64 H Pulse Oximetry 92 92 92 Oxygen Delivery Method CPAP Oxygen Flow Rate 6 Const Orientation: alert and oriented x3 Back/Spine/Pelvis Other: 5/5 motor both lower extremities. Moderate dry drainage on dressing Objective Labs Result Diagrams: 07/09/19 04:51 Assessment & Plan Post-op Postoperative Procedures: Procedures Operation Date: 07/08/19 07:45 Actual Procedures Side Surgeon p L34, L45 anterior & posterior instrumented fusion w/ bone graft. L34 laminectomy, L45 revision laminectomy Hal Roberson MD He has had some postoperative delirium, most likely secondary to the narcotics. We are going to continue to wean back on pain medication today. Mobilize with physical therapy. Consider half-way upon discharge if needed.
--- NOTE | 2019-07-10 08:11 | PC.NURSE ---
Addendum entered by Mackenzie Catherine R.N. 07/10/19 13:04: Report given to Guillermina for transfer to Rm 225. Wheeled up with belongings, including bilat SAUNDERS's and glasses, home CPAP. Medicated for pain prior to transfer and bucio removed @ 1130am. Updated assessment of skin to include blistering around Tegaderm on back, island dressing placed @ 1100 07/10/19 Multiple areas of weeping from dressing change. Addendum entered by Mackenzie Catherine R.N. 07/10/19 11:37: 1130-Per Son, Pt has not been taknig gabapentin at home, we will hold and evaluate effect on mentation. Addendum entered by Mackenzie Catherine R.N. 07/10/19 10:51: 1045-As morning progresses, Pt is more alert, and confusion decreases, forgetful at times, usually when first woke. PT into see Pt and with assist, able to stand and ambulate from bed to chair. Rates pain prior to movement 4/10. Facial grimace noted with movement, but Pt agrees with POC and will continue to go lightly with narcotics, to keep up with improved mentation. Update provided to monse Maldonado. Original Note: AM Shift Pt is noted with significant confusion this AM, What's going on with the house, who let you in? Reoriented Pt to Hospital, clearly will need continued reorientation, remains confused about staff. Dr Roberson into see Pt, discussed POC, plan to scale back on narcotics as this is making confusion worse, and Pt must get OOB today, as this is PO day 2.
[2019-07-10] MEDS: CHLORTHALIDONE 25 MG TABLET PO (09:05)
[2019-07-10] MEDS: ASPIRIN 325 MG TABLET PO (09:05)
[2019-07-10] MEDS: DOCUSATE 100 MG CAPSULE PO ×2 (09:06→20:57)
[2019-07-10] MEDS: MELOXICAM 7.5 MG TABLET PO ×2 (09:08→20:57)
[2019-07-10] MEDS: GABAPENTIN 600 MG TABLET PO (09:08)
--- NOTE | 2019-07-10 09:25 | PT.IPTN ---
Current Diagnoses Spondylolisthesis, lumbar region (07/08/19) Spinal stenosis, lumbar region with neurogenic claudication (07/08/19) Other specified postprocedural states (07/08/19) Surgery Performed Operation Date: 07/08/19 07:45 Actual Procedures p L34, L45 anterior & posterior instrumented fusion w/ bone graft. L34 laminectomy, L45 revision laminectomy - Hla Roberson MD Physical Therapy Treatment Note M3 PT-IP Subjective Start: 07/08/19 15:53 Freq: NEEDED Status: Active Protocol: Document 07/10/19 09:25 GGD (Rec: 07/10/19 11:51 GGD [email or web address]) Subjective Physical Therapy Visit Type Type Treatment Note Visit Start Time 09:00 Visit Stop Time 09:25 Total Visit Minutes 25 Number of BOX FOLDING MACHINE OPERATOR Visits 2 Physical Therapy Visit Comments Patient Comments Pt willing to work with therapy. Therapy Pain Assessment Pain When Pain Assessed During Mobility Pain Present Pain Present Pain Reported Location Lower Back Intensity 10 Scale Used Numeric (1 - 10) Pain Management Techniques Modification of Treatment,Re- positioning,Timing of Activity with Medications M4 PT-IP Mobility and Gait Start: 07/08/19 15:53 Freq: NEEDED Status: Active Protocol: Document 07/10/19 09:25 GGD (Rec: 07/10/19 11:51 GGD [email or web address]) PT-Bed Mobility Assessment Rolling Type of Rolling Log Rolling,Roll to Left Level of Assist Minimal Assistance Supine to Sit Supine to Sit Maximum Assistance,1 Person Assistance,Bedrails Scooting Scooting to Edge of Bed Minimal Assistance PT-Transfer Assessment Sit to and From Stand Sit to and from Stand Contact Guard Assistance,2 Person Assistance,Use of Upper Extremities Equipment Transfer Assistive Device Gait Belt,Front Wheeled Walker Transfers Transfer Destination Chair Transfer Ability Level of Assist Moderate Assistance,2 Person Assistance,Use of Upper Extremities Gait Assessment Gait Gait Assistance Required: Moderate Assistance,2 Person Assist Distance (Feet) 5 Able to Maintain Weight Bearing Status Yes During Gait Assistive Devices Assistive Device Gait Belt,Front Wheeled Walker Orthotic/Prosthetic Devices or Brace: No Gait Deviations General Gait Pattern Antalgic,Decreased Stride Length,Decreased Feet Clearance,Step-to Gait Factors Limiting Gait Function Factors Limiting Gait Function Decreased Activity Tolerance, Decreased Strength,Difficulty Following Directions,Pain,Poor Balance,Poor Safety Awareness M6 PT-IP Treatment Start: 07/08/19 15:53 Freq: NEEDED Status: Active Protocol: Document 07/10/19 09:25 GGD (Rec: 07/10/19 11:51 GGD [email or web address]) Physical Therapy Treatment Other Treatments Other Treatment Performed Pt unable to recall back precautions. M7 PT-IP Assessment and Plan Start: 07/08/19 15:53 Freq: NEEDED Status: Active Protocol: Document 07/10/19 09:25 GGD (Rec: 07/10/19 11:51 GGD [email or web address]) PT Summary Assessment and Plan Summary Assessment Summary Pt improved with rolling in bed. He needed less assist for EOB sitting balance. He was CGA for sit to stand from a high bed. HE was able to ambulate short distance with mod A and small step to gait pattern. He had difficulty following directions. He unable to recall precautions. Frequency of Treatment Frequency Of Treatment Twice a Day Treatment Plan Physical Therapy Treatment Plan Bed Mobility Training,Transfer Training,Gait Training, Therapeutic Exercise,Post Op Education,Discharge Planning Other Recommendations and Next Treatment bed mobility, transfers and Focus gait when able Recommendations To Nursing Amount of Assist Needed 2 Person Assist Discharge Recommendations PT Discharge Recommendations SNF Rehab
[2019-07-10] MEDS: OXYCODONE IR 5 MG TABLET PO ×2 (11:45→20:57)
--- NOTE | 2019-07-10 13:25 | OT.IP.TRT ---
Current Diagnoses Spondylolisthesis, lumbar region (07/08/19) Spinal stenosis, lumbar region with neurogenic claudication (07/08/19) Other specified postprocedural states (07/08/19) Surgery Performed Operation Date: 07/08/19 07:45 Actual Procedures p L34, L45 anterior & posterior instrumented fusion w/ bone graft. L34 laminectomy, L45 revision laminectomy - Hal Roberson MD Occupational Therapy Treatment Note M2 OT-IP Current Condition Start: 07/09/19 17:20 Freq: Status: Active Protocol: Document 07/09/19 17:20 [facility] (Rec: 07/09/19 17:46 [facility] [id number]) Occupational Therapy Current Condition Current Condition Evaluation Date 07/09/19 Treatment Diagnosis Lumbar stenosis with radiculopathy, S/P L3-4, L4-5 ant & post instr. fusion Diagnosis Onset Date 07/08/19 Post Operative Precautions Lumbar Precautions Log Roll,No Twisting,Limit Bending,Lifting Restriction of 10 lbs,Gait Belt above Incisional Area Weight Bearing Status Weight Bearing Status Weight Bear as Tolerated M3 OT- IP Subjective and Pain Start: 07/09/19 17:20 Freq: Status: Active Protocol: Document 07/10/19 13:02 [facility] (Rec: 07/10/19 13:25 [facility] [id number]) OT- Subjective Occupational Therapy Visit Type Type Treatment Note Visit Start Time 09:00 Visit Stop Time 09:25 Total Visit Minutes 39 Notes Also seen from [id number] Occupational Therapy Visit Comments Patient Comments Pt very sleepy but willing to try to get up. OT Pain Assessment Pain When Pain Assessed During Mobility Pain Present Pain Present Pain Reported Location Lower Back Intensity 8 Scale Used Numeric (1 - 10) M4 OT- IP ADL's Start: 07/09/19 17:20 Freq: Status: Active Protocol: Document 07/10/19 13:02 [facility] (Rec: 07/10/19 13:25 [facility] [id number]) OT [id number] Comments OT Self-Feeding Comments Noted while taking medication with water, pt coughing, nursing notified. OT ADL-Grooming General Evaluation Grooming Ability Standby Assistance Areas Needing Assistance Retrieving/Set-up of Grooming Items Comments OT Grooming Comments Pt very groggy and needing vc to sequence through task of brushing his teeth as falling asleep and decreased alertness , vc to take off tooth paste cap , picking machine operator cup to rinse his mouth out, vc to find wash cloth in front of him to wash his face. OT ADL-Oral Care General Eval Oral Care Ability Standby Assistance Areas of Assistance Retrieving/Set-Up of Items OT ADL-Toileting Comments OT Toileting Comments Pt has catheter in. OT ADL-Bathing Comments OT Bathing Comments Not at this time. M5 OT- IP IADL's Start: 07/09/19 17:20 Freq: Status: Active Protocol: Document 07/09/19 17:20 [facility] (Rec: 07/09/19 17:46 [facility] [id number]) OT-Instrumental Activities of Daily Living Home Safety Awareness Home Safety Comments Prior pt per son completely independent with all needs , however pt now very groggy and having difficulty to follow directions. M6 OT- IP Functional Cognition Start: 07/09/19 17:20 Freq: Status: Active Protocol: Document 07/10/19 13:02 [facility] (Rec: 07/10/19 13:25 [facility] [id number]) Cognitive Factors Limiting Selfcare Function Cognitive Ability Level of Alertness Alert,Confusional State,Drowsy Patient Orientation Name Attention Span Ability Capable of Focused Attention, Unable to Sustain Attention Ability to Follow Commands Able to Follow One Step Commands with Increased Time, Able to Follow One Step Commands with Repetition Memory Description Short Term Impaired Cognitive Comments Cognitive Assessment Comments Pt continues to need step by step instructions for ADl and functional mobility needs. Pt is very groggy. Pt not able to recall any back precautions after several times of education in the session. Pt eventually able to recall back precautions after given visual cues. OT- Vision and Hearing OT- Vision Assessment Vision Assessment Comments Pt doing better today to reach for items and feels that he is seeing better today. M7 OT- IP Mobility and Balance Start: 07/09/19 17:20 Freq: Status: Active Protocol: Document 07/10/19 13:02 [facility] (Rec: 07/10/19 13:25 [facility] [id number]) OT- Bed Mobility Assessment Supine to Sit Supine to Sit Assist Maximum Assistance,1 Person Assistance OT-Transfer Assessment Sit to and From Stand Sit to and from Stand Contact Guard Assistance,2 Person Assistance Transfers Transfer Ability Moderate Assistance,2 Person Assistance Technique Transfer Destination Chair Transfer Technique Stand Step Pivot Devices Transfer Assistive Devices Gait Belt,Front Wheeled Walker Comments Mobility Comments Pt tolerating bed mobility better today and MAX A X 1, pt able to sit to edge of bed after help with SBA today. CGA x2 to stand from high bed and will need more assist to stand from recliner MODA x2. Pt able to take a few steps forwards and MODA X 2 and then having to sit down to the recliner. OT- Balance Assessment Sitting Balance and Reactions Static Sitting Balance Ability Fair M8 OT- IP Objective Assessments Start: 07/09/19 17:20 Freq: Status: Active Protocol: Document 07/09/19 17:20 [facility] (Rec: 07/09/19 17:46 [facility] [id number]) OT Gross Range of Motion Upper Extremity Range of Motion ROM Impairments Not able to fully assess at this time time. OT Strength Comments Strength Comments Not able to fully assess at this time. OT-Muscle Tone Assessment Muscle Tone WNL Yes M9 OT- IP Assessment and Plan Start: 07/09/19 17:20 Freq: Status: Active Protocol: Document 07/10/19 13:02 [facility] (Rec: 07/10/19 13:25 [facility] [id number]) OT Summary Assessment and Plan Potential Rehabilitation Potential Good Summary OT Impairments Pain,Strength,Balance, Functional Cognition, Functional Mobility,Self- Feeding,Grooming,Dressing, Toileting,Bathing,Toilet Transfers,Shower Transfers Progress Towards Goals Slow Progress due to Activity Tolerance,Slow Progress due to Cognition Assessment Summary Pt able to tolerate getting out of bed to take a few steps to the recliner with FWW and MODA X 2 today. Pt still very groggy , decreased safety awareness, and ability to follow directions which main be form pain medications, nursing aware. Pt will benefit from skilled rehab prior to going home to continue to work on safety awarenes, independence for ADl 's and functional mobility. Goals Self-Feeding Goal Standby Assistance Grooming Goal Minimal Assistance Dressing Goal Minimal Assistance Toileting Goal Minimal Assistance Bathing Goal Moderate Assistance Toilet Transfer Goal Minimal Assistance Shower Transfer Goal Moderate Assistance Patient/Caregiver Education Goal Caregiver Independent Assisting Patient Days to Meet Goals 10 Frequency of Treatment Frequency Of Treatment Once a Day Treatment Plan OT Treatment Plan ADL Training,Functional Cognition Training,Functional Mobility,Patient/Family Education,Discharge Planning Other Treatment Recommendations and Next Standing at sink from grooming Treatment Focus needs with FWW and LOPEZ. Discharge Recommendations OT Discharge Recommendations SNF Rehab Home Equipment Needs Defer to SNF.
--- NOTE | 2019-07-10 13:26 | PC.NURSE ---
Day shift: Pt on AC unit from ICU at approx 1200. Oriented to room and call light. Agrees to not get OOB w/o help from staff. Dressing is CDI. SCD's applied. Blank was taken out in ICU just before transfer. Pt is yet to void post Blank. Call light in reach. Reports pain 02/19. Instructed on I.S. use. Son in room for support.
--- NOTE | 2019-07-10 14:03 | DIET.PN ---
Dietary Progress Note Assessment: 79y M 1d s/p procedure for Lumbar stenosis with radiculopathy Pt moved to acute care, was sitting c son. Pt was still a bit groggy but enjoying lunch and pleasant. Pt ate 50% breakfast, 100% shake and over 50% lunch. He stated he was ready to eat. Pt's son reports reported wt loss in MNA was due to retained fluid in legs which was removed via diuretics (~10#). States pt has always been on the thin side. HT: 180.3cm WT: 76.6kg BMI: 23.6 Nutrition Diagnosis: Inadequate protein intake r/t increased needs with wound healing aeb 1d s/p open lumbar procedure, pt too groggy for adequate POs yesterday. Interventions: Continue c Protein smoothie with jasiel bid for wound healing and increased PRO providing 42% EER PRO. With better POs today, pt likely attaining EERs with this regimen. EERs: 1800kcal, 85g PRO (1.1g/kg), 2.3 L fluids Monitoring/Evaluations: POs, wt, wound healing
--- NOTE | 2019-07-10 15:01 | CM.DPNOTE ---
DCP Cont: Reviewed chart. Attempted to meet w/pt and he remains quite confused and groggy. LM for son Joel this morning and later got in touch. Explained RADAR SCIENTIST role and discussed therapy recommendation for SNF. Mesfin Maldonado agrees and this RADAR SCIENTIST reviewed the Medicare SNF choice list by phone. [facility] 2. [facility] Faxed referral to [facility] in hopes of securing a SNF bed for Sunday or Sunday. Following closely. ALEJANDRO Russell
--- NOTE | 2019-07-10 16:27 | PT.IPTN ---
Current Diagnoses Spondylolisthesis, lumbar region (07/08/19) Spinal stenosis, lumbar region with neurogenic claudication (07/08/19) Other specified postprocedural states (07/08/19) Surgery Performed Operation Date: 07/08/19 07:45 Actual Procedures p L34, L45 anterior & posterior instrumented fusion w/ bone graft. L34 laminectomy, L45 revision laminectomy - Hal Roberson MD Physical Therapy Treatment Note M3 PT-IP Subjective Start: 07/08/19 15:53 Freq: NEEDED Status: Active Protocol: Document 07/10/19 16:18 AW (Rec: 07/10/19 16:27 AW [id number]) Subjective Physical Therapy Visit Type Type Treatment Note Visit Start Time 15:08 Visit Stop Time 15:36 Total Visit Minutes 28 Number of BRIM WELT SEWING MACHINE OPERATOR Visits 0 Physical Therapy Visit Comments Patient Comments Pt drowsy but willing to work with PT. Therapy Pain Assessment Pain When Pain Assessed During Mobility Pain Present Pain Present Pain Reported Location Lower Back Intensity 5 Scale Used Numeric (1 - 10) Pain Management Techniques Modification of Treatment,Re- positioning,Timing of Activity with Medications M4 PT-IP Mobility and Gait Start: 07/08/19 15:53 Freq: NEEDED Status: Active Protocol: Document 07/10/19 16:18 AW (Rec: 07/10/19 16:27 AW [id number]) PT-Bed Mobility Assessment Rolling Type of Rolling Log Rolling,Roll to Left Level of Assist Minimal Assistance Supine to Sit Supine to Sit Moderate Assistance,1 Person Assistance,Bedrails Scooting Scooting to Edge of Bed Minimal Assistance PT-Transfer Assessment Sit to and From Stand Sit to and from Stand Minimal Assistance,1 Person Assistance,Use of Upper Extremities Equipment Transfer Assistive Device Gait Belt,Front Wheeled Walker Transfers Transfer Destination Chair Transfer Ability Level of Assist Moderate Assistance,1 Person Assistance,Use of Upper Extremities Comments Mobility Comments Decreased level of assist this session, requiring mod assist x 1 at most. Gait Assessment Gait Gait Assistance Required: Minimum Assistance,1 Person Assist Distance (Feet) 20 Able to Maintain Weight Bearing Status Yes During Gait Assistive Devices Assistive Device Gait Belt,Front Wheeled Walker Orthotic/Prosthetic Devices or Brace: No Gait Deviations General Gait Pattern Antalgic,Decreased Stride Length,Decreased Feet Clearance,Step-to Gait Factors Limiting Gait Function Factors Limiting Gait Function Decreased Activity Tolerance, Decreased Strength,Difficulty Following Directions,Pain,Poor Balance,Poor Safety Awareness M6 PT-IP Treatment Start: 07/08/19 15:53 Freq: NEEDED Status: Active Protocol: Document 07/10/19 16:18 AW (Rec: 07/10/19 16:27 AW [id number]) Physical Therapy Treatment Other Treatments Other Treatment Performed Pt continues to be unable to recall back precautions M7 PT-IP Assessment and Plan Start: 07/08/19 15:53 Freq: NEEDED Status: Active Protocol: Document 07/10/19 16:18 AW (Rec: 07/10/19 16:27 AW [id number]) PT Summary Assessment and Plan Summary Assessment Summary Pt able to communicate more clearly this afternoon with improved mentation. Pain significantly decreased since this morning, allowing decreased level of assist for bed mobility, transfers, and gait. Gait distance improved with good potential to advance further at next session. PT recommends SNF rehab due to severity of functional limitations and barrier of 12 stairs to enter home. Goals Bed Mobility Goal Minimal Assistance Transfer Goal Minimal Assistance,Front Wheeled Walker Gait Goal Minimal Assistance,Front Wheel Walker Gait Distance 50 Other Goals Pt has 12 steps to enter 2nd floor with L rail Days to Meet Goals 8 Frequency of Treatment Frequency Of Treatment Twice a Day Treatment Plan Physical Therapy Treatment Plan Bed Mobility Training,Transfer Training,Gait Training, Therapeutic Exercise,Post Op Education,Discharge Planning Recommendations To Nursing Amount of Assist Needed 2 Person Assist Discharge Recommendations PT Discharge Recommendations SNF Rehab
[2019-07-10] MEDS: ONDANSETRON 4 MG/2 ML INJ IV (19:30)
[2019-07-10] MEDS: SENNOSIDES 8.6 MG TABLET 17.2 MG PO (20:57)
[2019-07-10] MEDS: AMLODIPINE 5 MG TABLET PO (20:57)
[2019-07-10] MEDS: ATORVASTATIN 20 MG TABLET PO (20:57)
[2019-07-11] MEDS: OXYCODONE IR 5 MG TABLET PO ×2 (00:44→08:59)
[2019-07-11] MEDS: ACETAMINOPHEN 325 MG TABLET 975 MG PO ×3 (05:38→21:20)
--- NOTE | 2019-07-11 05:43 | PC.NURSE ---
Gave patient prune juice with his scheduled medication, since no BM since . At my shift beginning I outlined the scant shadowing. By 399 shadowing had moved beyond drawn boundaries. Has minimal pain, has been able to void this shift using the urinal.
[2019-07-11 05:47] VITALS: BP 158/76; PULSE 89; RESP 16; TEMP 37; O2SAT 93
--- NOTE | 2019-07-11 08:06 | DI.CT.S_ITS ---
PROCEDURE: CT LUMBAR SPINE WO CON INDICATIONS: LBP, BLE pain, post surgery TECHNIQUE: Noncontrast 3 mm thick sections acquired from the T12 level to the sacrum. Sagittal and coronal reformats were constructed. For radiation dose reduction, the following was used: automated exposure control. COMPARISON: [facility], CR, XR LUMBAR SPINE 2-3V, 07/08/2019, 8:53. Lesion is without side MRI dated 12/13/18. FINDINGS: Image quality: Excellent. Bones: There is normal bony alignment. No acute vertebral body compression fractures. No suspicious lytic or blastic bony lesions. Central spinal caliber is of normal overall caliber. No pars defects. Postoperative changes are seen, with bilateral pedicle screws at the L3, L4, and L5 levels. The screws appear well placed. Vertical fixation rods are seen. Disc spacers are seen at L3-L4 and L4-L5. No findings of hardware failure or hardware loosening are seen. There has been removal of portions of the posterior elements. Bone grafting material is noted. T12-L1: No significant abnormality is seen. L1-L2: Level within normal limits. L2-L3: The disc height is well preserved. Mild to moderate disc bulge is seen. [id number]-gtcbujar bilateral neural foraminal narrowing is seen. L3-L4: Postoperative changes are seen at this level. The disc height is well-preserved. Moderate generalized disc bulge is seen. Moderate bilateral neural foraminal narrowing is seen. No significant central canal narrowing is seen. The degree of central canal narrowing is clearly improved compared to the preoperative MRI. L4-L5: Postoperative changes at this level. Mild to moderate disc bulge is seen. Moderate bilateral neural foraminal narrowing is seen, right worse than left and no significant central male narrowing is seen. There has been improvement in the degree of central canal narrowing compared to the preoperative MRI. L5-S1: Severe loss of disc height is seen, with bridging of endplate osteophytes at this level. There is moderate to severe right-sided and moderate left-sided neural foraminal narrowing seen. Mild central canal narrowing is seen. Soft tissues: Retroperitoneal and paraspinous gas can be seen, which is consistent with the recent surgery. No retroperitoneal masses or hematomas. Visualized aorta is normal in caliber. Atherosclerotic calcification is noted. IMPRESSION: L3-L5 postoperative change within normal limits. The degree of central canal narrowing within the postoperative region is clearly improved compared to the preoperative MRI. Dictated by: Alex Gaitan M.D. on 07/11/2019 at 11:19 Approved by: Alex Gaitan M.D. on 07/11/2019 at 11:25
--- NOTE | 2019-07-11 08:07 | PM.PNPO.1 ---
Subjective Subjective Date Patient Seen: 07/11/19 Time Patient Seen: 08:07 Interval history: Patient is still very limited. He his pain is better down to about a 6/10 right now but he reports that is not only his back but also going down the sides of both legs. Has some confusion last night with medication. Exam Vital Signs (past 8 hours): - 07/11/19 05:47 Temperature 98.6 F Pulse Rate 89 Respiratory Rate 16 Blood Pressure 158/76 H Pulse Oximetry 93 Oxygen Delivery Method CPAP Oxygen Flow Rate 6 Const Orientation: alert and oriented x3 Back/Spine/Pelvis Other: Moderate drainage on left-side of dressing. 5/5 motor both lower extremities although limited by pain Objective Labs Result Diagrams: 07/09/19 04:51 Assessment & Plan Post-op Postoperative Procedures: Procedures Operation Date: 07/08/19 07:45 Actual Procedures Side Surgeon p L34, L45 anterior & posterior instrumented fusion w/ bone graft. L34 laminectomy, L45 revision laminectomy Hal Roberson MD he is progressing very slowly and now is complaining of increasing leg pain. I am going to get a CT scan of his lumbar spine today to evaluate the surgical site. I think he is probably looking at skilled rehab in the next day or so as he is not progressing. We are going to try to cut back on his pain medication to prevent confusion.
[2019-07-11 08:28] VITALS: BP 143/72; PULSE 84; RESP 18; TEMP 36.8; O2SAT 92
[2019-07-11] MEDS: ASPIRIN 325 MG TABLET PO (08:59)
[2019-07-11] MEDS: MELOXICAM 7.5 MG TABLET PO ×2 (08:59→19:55)
[2019-07-11] MEDS: DOCUSATE 100 MG CAPSULE PO ×2 (08:59→19:54)
[2019-07-11] MEDS: CHLORTHALIDONE 25 MG TABLET PO (09:00)
--- NOTE | 2019-07-11 10:35 | PT.IPTN ---
Current Diagnoses Spondylolisthesis, lumbar region (07/08/19) Spinal stenosis, lumbar region with neurogenic claudication (07/08/19) Other specified postprocedural states (07/08/19) Surgery Performed Operation Date: 07/08/19 07:45 Actual Procedures p L34, L45 anterior & posterior instrumented fusion w/ bone graft. L34 laminectomy, L45 revision laminectomy - Hal Roberson MD Physical Therapy Treatment Note M3 PT-IP Subjective Start: 07/08/19 15:53 Freq: NEEDED Status: Active Protocol: Document 07/11/19 10:26 (Rec: 07/11/19 10:34 [id number]) Subjective Physical Therapy Visit Type Type Treatment Note Visit Start Time 09:17 Visit Stop Time 09:45 Total Visit Minutes 28 Number of SAMPLE PASTER Visits 0 Physical Therapy Visit Comments Patient Comments Pt stated he is getting better and more alert, and willing to work with PT. Therapy Pain Assessment Pain When Pain Assessed During Mobility Pain Present Pain Present Pain Reported M4 PT-IP Mobility and Gait Start: 07/08/19 15:53 Freq: NEEDED Status: Active Protocol: Document 07/11/19 10:26 (Rec: 07/11/19 10:34 [id number]) PT-Bed Mobility Assessment Rolling Type of Rolling Log Rolling,Roll to Right Level of Assist Contact Guard Assistance Supine to Sit Supine to Sit Minimal Assistance,1 Person Assistance,Bedrails Scooting Scooting to Edge of Bed Contact Guard Assistance PT-Transfer Assessment Sit to and From Stand Sit to and from Stand Contact Guard Assistance, Minimal Assistance,1 Person Assistance,Use of Upper Extremities Equipment Transfer Assistive Device Gait Belt,Front Wheeled Walker Transfers Transfer Destination Chair,Toilet Transfer Ability Level of Assist Contact Guard Assistance, Minimal Assistance,1 Person Assistance,Use of Upper Extremities Comments Mobility Comments decreased assistance needed but cont required reminders for log roll and precautions. Gait Assessment Gait Gait Assistance Required: Minimum Assistance,1 Person Assist Distance (Feet) 50 Able to Maintain Weight Bearing Status Yes During Gait Assistive Devices Assistive Device Gait Belt,Front Wheeled Walker Orthotic/Prosthetic Devices or Brace: No Gait Deviations General Gait Pattern Antalgic,Decreased Stride Length,Decreased Feet Clearance,Step-to Gait Factors Limiting Gait Function Factors Limiting Gait Function Decreased Activity Tolerance, Decreased Strength,Difficulty Following Directions,Pain,Poor Balance,Poor Safety Awareness Comments Gait Comments Pt required min A for walker management during turns. M6 PT-IP Treatment Start: 07/08/19 15:53 Freq: NEEDED Status: Active Protocol: Document 07/10/19 16:18 AW (Rec: 07/10/19 16:27 AW [id number]) Physical Therapy Treatment Other Treatments Other Treatment Performed Pt continues to be unable to recall back precautions M7 PT-IP Assessment and Plan Start: 07/08/19 15:53 Freq: NEEDED Status: Active Protocol: Document 07/11/19 10:26 HH (Rec: 07/11/19 10:34 HH [id number]) PT Summary Assessment and Plan Potential Rehabilitation Potential Good Status of Condition at Evaluation Stable Summary Impairments Pain,ROM,Strength,Balance, Cognition,Bed Mobility, Transfers,Gait,Activity Tolerance Progress Towards Goals Slow Progress due to Pain,Slow Progress due to Activity Tolerance Assessment Summary Pt cont to improve wth gait distance and activity tolerance with less pain. He is also more alert and oriented but cont needed cues for safety awareness and post op precautions. D/C to SNF is still an ideal option for him due to his high fall risks, generalized weakness. per [employer] DEPUT[employer] SHERIFF, pt and his family are deciding to go [facility]/ [facility]. Goals Bed Mobility Goal Minimal Assistance Transfer Goal Minimal Assistance,Front Wheeled Walker Gait Goal Minimal Assistance,Front Wheel Walker Gait Distance 50 Other Goals Pt has 12 steps to enter 2nd floor with L rail Days to Meet Goals 8 Frequency of Treatment Frequency Of Treatment Twice a Day Treatment Plan Physical Therapy Treatment Plan Bed Mobility Training,Transfer Training,Gait Training, Therapeutic Exercise,Post Op Education,Discharge Planning Other Recommendations and Next Treatment bed mobility, transfers and Focus gait when able review precautions might try stairs if possible Recommendations To Nursing Amount of Assist Needed 1 Person Assist Discharge Recommendations PT Discharge Recommendations SNF Rehab
[2019-07-11] MEDS: MAG HYDROX/ALUM/SIMETH 30 ML UDC PO (10:58)
--- NOTE | 2019-07-11 11:29 | OT.IP.TRT ---
Current Diagnoses Spondylolisthesis, lumbar region (07/08/19) Spinal stenosis, lumbar region with neurogenic claudication (07/08/19) Other specified postprocedural states (07/08/19) Surgery Performed Operation Date: 07/08/19 07:45 Actual Procedures p L34, L45 anterior & posterior instrumented fusion w/ bone graft. L34 laminectomy, L45 revision laminectomy - Hal Roberson MD Occupational Therapy Treatment Note M2 OT-IP Current Condition Start: 07/09/19 17:20 Freq: Status: Active Protocol: Document 07/09/19 17:20 [facility] (Rec: 07/09/19 17:46 [facility] [id number]) Occupational Therapy Current Condition Current Condition Evaluation Date 07/09/19 Treatment Diagnosis Lumbar stenosis with radiculopathy, S/P L3-4, L4-5 ant & post instr. fusion Diagnosis Onset Date 07/08/19 Post Operative Precautions Lumbar Precautions Log Roll,No Twisting,Limit Bending,Lifting Restriction of 10 lbs,Gait Belt above Incisional Area Weight Bearing Status Weight Bearing Status Weight Bear as Tolerated M3 OT- IP Subjective and Pain Start: 07/09/19 17:20 Freq: Status: Active Protocol: Document 07/11/19 11:29 PJM (Rec: 07/11/19 12:03 PJM [id number]) OT- Subjective Occupational Therapy Visit Type Type Treatment Note Visit Start Time 10:45 Visit Stop Time 11:29 Total Visit Minutes 44 Occupational Therapy Visit Comments Patient Comments This chair is not very comfortable. OT Pain Assessment Pain When Pain Assessed After Treatment Pain Present Pain Present Pain Reported Location Lower Back Intensity 6 Description Aching,Acute Pain Behaviors Facial Grimacing,Guarding, Restlessness,Wincing Management Techniques Distraction,Re-positioning, Timing of Activity with Medications M4 OT- IP ADL's Start: 07/09/19 17:20 Freq: Status: Active Protocol: Document 07/11/19 11:29 PJM (Rec: 07/11/19 12:03 PJM [id number]) OT [id number] General Evaluation Self-Feeding Ability Independent Comments OT Self-Feeding Comments but pt dozes off mid meal and needs verbal cues to sustain attention to task OT ADL-Dressing General Eval Lower Body Dressing Ability Moderate Assistance Areas Needing Assistance Socks Assistive Devices Dressing Assistive Devices Bulk Pigment Reducer,Sock Aid Comments OT Dressing Comments Provided education, demo, practice re: use of hand bender and sock aid to doff and don socks. Pt provided with hand bender , sock aid and long shoe horn. M6 OT- IP Functional Cognition Start: 07/09/19 17:20 Freq: Status: Active Protocol: Document 07/11/19 11:29 PJM (Rec: 07/11/19 12:03 [facility] [id number]) Cognitive Factors Limiting Selfcare Function Cognitive Ability Level of Alertness Drowsy Patient Orientation Name,Month,Date,Year,Place, Situation Attention Span Ability Capable of Focused Attention, Unable to Sustain Attention Ability to Follow Commands Able to Follow One Step Commands Memory Description Short Term Impaired Safety Awareness Decreased Recall of Precautions,Decreased Ability to Apply Precautions, Underestimates Need for Assistance Problem Solving Ability Unable to Identify Errors, Needs Assist to Identify Solutions Executive Function Ability Unable to Filter Distractions, Unable to Remember Details Cognitive Comments Cognitive Assessment Comments Pt more alert and oriented today, but still drowsy, especially at beginning and end of session. Conversation tangential and mildly confused at times. OT- Vision and Hearing OT- Vision Assessment Visual Acuity WFL,Glasses All The Time, pt can read white board across room M9 OT- IP Assessment and Plan Start: 07/09/19 17:20 Freq: Status: Active Protocol: Document 07/11/19 11:29 PJ (Rec: 07/11/19 12:03 [facility] [id number]) OT Summary Assessment and Plan Summary OT Impairments Pain,Strength,Balance, Functional Cognition, Functional Mobility,Grooming, Dressing,Toileting,Bathing, Toilet Transfers,Shower Transfers Progress Towards Goals Slow Progress due to Cognition Assessment Summary Pt more alert and oriented today. He demonstrates obvious short term memory deficits and unable to state any lumbar spine precautions at start of session, so posted them in his line of sight in room. With repetition, pt able to state precautions but still needs mod to max verbal cues to apply them to functional tasks such as lower body dressing. Began education re:use of hand bender and sock aid to increase independence with this task. Pt demonstrating improved performance with new tool use with repetition and practice. He was also able to recall lumbar spine precautions with repetition and pt initiating use of posted precaution sheet to remind himself. Recommend SNF at d/c for further rehab services to increase independence and safety in basic self care skills. Goals Self-Feeding Goal Standby Assistance Grooming Goal Standby Assistance Dressing Goal Minimal Assistance Toileting Goal Minimal Assistance Bathing Goal Moderate Assistance Toilet Transfer Goal Minimal Assistance Shower Transfer Goal Moderate Assistance Patient/Caregiver Education Goal Caregiver Independent Assisting Patient Days to Meet Goals 10 Frequency of Treatment Frequency Of Treatment Once a Day Treatment Plan OT Treatment Plan ADL Training,Functional Cognition Training,Functional Mobility,Patient/Family Education,Discharge Planning Discharge Recommendations OT Discharge Recommendations SNF Rehab Home Equipment Needs provided hand bender, sock aid, long shoe horn and long bath sponge
[2019-07-11 11:50] VITALS: BP 122/54; PULSE 72; RESP 18; TEMP 36.5; O2SAT 94
[2019-07-11] MEDS: TRAMADOL 50 MG TABLET PO ×2 (12:40→19:53)
--- NOTE | 2019-07-11 13:48 | PC.NURSE ---
Day Shift- Pt found with inc urine in bed, SCD's on, urine trail from bed to BR. Full bed bath performed with 2PA. Update given to pt's son Jeff at 0750 and again at 0809, Jeff requested Annie with case management to call him with update. This casualty underwriter spoke with Dr. Roberson around 0805, pt not discharging today, Plan for pain management and CT of lumbar spine. Spoke with Annie around 0820, and made aware that Jeff is requesting to speak with her at some point this AM. Pt to CT scan via wheelchair at 1016 and back at 1025. High fall risk precautions in place, bed/chair alarm on at all times. Pt set chair alarm off and helped himself to bed, reminded again of this safety issue and risk of falling and hurting himself. Pt does perform log roll and avoids twisting with little reminder with transfers. Lower back dressing has 30% sang shadowing drainage, intact. CMS+, PPP. PRN Oxycodone given at 0905 for 6/10 pain, upon reassessment, pt stated his pain did not change. Pt able to participate in activities. Settled back into bed at 1140. PRN Tramadol given at 1240 for 5-6/10pain, explained to pt the use of Tramadol to trial if this would change his pain level. Upon reassessment, pt sleeping in bed, easily arousable.
--- NOTE | 2019-07-11 14:55 | PT.IPTN ---
Current Diagnoses Spondylolisthesis, lumbar region (07/08/19) Spinal stenosis, lumbar region with neurogenic claudication (07/08/19) Other specified postprocedural states (07/08/19) Surgery Performed Operation Date: 07/08/19 07:45 Actual Procedures p L34, L45 anterior & posterior instrumented fusion w/ bone graft. L34 laminectomy, L45 revision laminectomy - Hal Roberson MD Physical Therapy Treatment Note M3 PT-IP Subjective Start: 07/08/19 15:53 Freq: NEEDED Status: Active Protocol: Document 07/11/19 16:18 GGD (Rec: 07/11/19 16:28 GGD [id number]) Subjective Physical Therapy Visit Type Type Treatment Note Visit Start Time 14:25 Visit Stop Time 14:53 Total Visit Minutes 28 Number of SALESPERSON RECREATIONAL VEHICLES Visits 1 Physical Therapy Visit Comments Patient Comments Pt willing to work with PT. Therapy Pain Assessment Pain When Pain Assessed During Mobility Pain Present Pain Present Pain Reported Location Lower Back Intensity 5 Scale Used Numeric (1 - 10) Pain Management Techniques Modification of Treatment,Re- positioning,Timing of Activity with Medications M4 PT-IP Mobility and Gait Start: 07/08/19 15:53 Freq: NEEDED Status: Active Protocol: Document 07/11/19 16:18 GGD (Rec: 07/11/19 16:28 GGD [id number]) PT-Bed Mobility Assessment Rolling Type of Rolling Log Rolling,Roll to Right Level of Assist Contact Guard Assistance Supine to Sit Supine to Sit Minimal Assistance,1 Person Assistance,Bedrails Scooting Scooting to Edge of Bed Contact Guard Assistance PT-Transfer Assessment Sit to and From Stand Sit to and from Stand Contact Guard Assistance, Minimal Assistance,1 Person Assistance,Use of Upper Extremities Equipment Transfer Assistive Device Gait Belt,Front Wheeled Walker Transfers Transfer Destination Toilet Transfer Ability Level of Assist Contact Guard Assistance, Minimal Assistance,1 Person Assistance,Use of Upper Extremities Gait Assessment Gait Gait Assistance Required: Minimum Assistance,1 Person Assist Distance (Feet) 60 Able to Maintain Weight Bearing Status Yes During Gait Assistive Devices Assistive Device Gait Belt,Front Wheeled Walker Orthotic/Prosthetic Devices or Brace: No Gait Deviations General Gait Pattern Antalgic,Decreased Stride Length,Decreased Feet Clearance,Step-to Gait Factors Limiting Gait Function Factors Limiting Gait Function Decreased Activity Tolerance, Decreased Strength,Difficulty Following Directions,Pain,Poor Balance,Poor Safety Awareness Comments Gait Comments Pt needed mod cues. M6 PT-IP Treatment Start: 07/08/19 15:53 Freq: NEEDED Status: Active Protocol: Document 07/11/19 16:18 GGD (Rec: 07/11/19 16:28 GGD [id number]) Physical Therapy Treatment Other Treatments Other Treatment Performed Pt unable to recall back precautions M7 PT-IP Assessment and Plan Start: 07/08/19 15:53 Freq: NEEDED Status: Active Protocol: Document 07/11/19 16:18 GGD (Rec: 07/11/19 16:28 GGD [id number]) PT Summary Assessment and Plan Summary Assessment Summary Pt improving with mobility and needing less assist. He needs cue for safety with FWW. He need min a for bed mobility. Frequency of Treatment Frequency Of Treatment Twice a Day Treatment Plan Physical Therapy Treatment Plan Bed Mobility Training,Transfer Training,Gait Training, Therapeutic Exercise,Post Op Education,Discharge Planning Recommendations To Nursing Amount of Assist Needed 1 Person Assist Discharge Recommendations PT Discharge Recommendations SNF Rehab
[2019-07-11 16:00] VITALS: BP 113/48; PULSE 70; RESP 16; TEMP 36.5; O2SAT 94
--- NOTE | 2019-07-11 17:40 | CM.DPNOTE ---
DCP Cont: Pt has been accepted at [facility], no DC today, DC expected Sunday. Updated Dr Roberson and JOURDAN Myers. Had lengthy conversation w/pt's son Joel today about DCP and Joel's concerns over the slow recovery of his Dad, Joel is fearful that pt will not make a full recovery. This CEMETERY COUNSELOR supported Joel and encouraged him to get in touch w/pt's RN and w/Dr Roberson through his outpt office for more medical information and questions he still had about surgery and recovery. Dinorah at [facility] has arranged cabulance for Sunday p/u at 1330. Yadira will be answering the admission phone for coordination Sunday. PASRR completed. Geraldine Denson MSW
--- NOTE | 2019-07-11 19:05 | PC.NURSE ---
Addendum entered by Roberta Bedolla R.N. 07/11/19 23:05: Some confusion noted this late evening shift. Requires multiple explanations for use of call light and routine for urinating when need arises. Pt accepts explanations easily. Is able to stand @ bedside with walker and gait belt to use urinal. Addendum entered by Roberta Bedolla R.N. 07/11/19 21:57: IV to left wrist has failed. Restated to left forearm. Using call light appropriately for assistance with urinal. Incontinent episode in bathroom this evening shift. Dressing to left flank and back changed as per MD order. Pt has reddened areas to skin underneath borders of tegaderm to left flank. Coversite placed following removal of surgical dressing. Yellow surgical tape left intact. Dressing to lower central back removed and suture lines (vertical x 2) intact. Covered with coversite dressing. Pt assisted into bed using log roll technique. Declines to wear cpap. Bed alarm and BL foot pumps in place. Original Note: Pt was moved from room 225 to room 226 as per dayshift report pt has demonstrated some confusion. Currently alert and oriented and follows commands appropriately. Pt's son is present and very involved in pt's care.
[2019-07-11] MEDS: ATORVASTATIN 20 MG TABLET PO (19:54)
[2019-07-11] MEDS: SENNOSIDES 8.6 MG TABLET 17.2 MG PO (19:55)
[2019-07-11] MEDS: AMLODIPINE 5 MG TABLET PO (19:55)
[2019-07-11 20:00] VITALS: BP 117/64; PULSE 78; RESP 16; TEMP 37.3; O2SAT 96
[2019-07-12] VITALS: BP 117/52; PULSE 69; RESP 16; TEMP 37.1; O2SAT 98
[2019-07-12] MEDS: TRAMADOL 50 MG TABLET PO ×2 (03:04→10:06)
[2019-07-12] MEDS: ACETAMINOPHEN 325 MG TABLET 975 MG PO ×2 (04:07→13:42)
[2019-07-12 04:40] VITALS: BP 116/61; PULSE 63; RESP 16; TEMP 36.8; O2SAT 95
[2019-07-12 08:38] VITALS: BP 121/59; PULSE 65; RESP 17; TEMP 36.6; O2SAT 92
[2019-07-12] MEDS: CHLORTHALIDONE 25 MG TABLET PO (10:01)
[2019-07-12] MEDS: SODIUM CHLORIDE 0.9% FLUSH 10 ML IV (10:02)
[2019-07-12] MEDS: MELOXICAM 7.5 MG TABLET PO (10:05)
[2019-07-12] MEDS: DOCUSATE 100 MG CAPSULE PO (10:05)
[2019-07-12] MEDS: ASPIRIN 325 MG TABLET PO (10:05)
[2019-07-12 11:32] VITALS: BP 118/64; PULSE 78; RESP 19; TEMP 36.6; O2SAT 96
--- NOTE | 2019-07-12 11:45 | PT.IPTN ---
Current Diagnoses Spondylolisthesis, lumbar region (07/08/19) Spinal stenosis, lumbar region with neurogenic claudication (07/08/19) Other specified postprocedural states (07/08/19) Surgery Performed Operation Date: 07/08/19 07:45 Actual Procedures p L34, L45 anterior & posterior instrumented fusion w/ bone graft. L34 laminectomy, L45 revision laminectomy - Hal Roberson MD Physical Therapy Treatment Note M3 PT-IP Subjective Start: 07/08/19 15:53 Freq: NEEDED Status: Active Protocol: Document 07/12/19 11:45 GGD (Rec: 07/12/19 12:58 GGD [id number]) Subjective Physical Therapy Visit Type Type Patient Refusal Notes Pt refused states he is tired after shower with OT. M4 PT-IP Mobility and Gait Start: 07/08/19 15:53 Freq: NEEDED Status: Active Protocol: Document 07/11/19 16:18 GGD (Rec: 07/11/19 16:28 GGD [id number]) PT-Bed Mobility Assessment Rolling Type of Rolling Log Rolling,Roll to Right Level of Assist Contact Guard Assistance Supine to Sit Supine to Sit Minimal Assistance,1 Person Assistance,Bedrails Scooting Scooting to Edge of Bed Contact Guard Assistance PT-Transfer Assessment Sit to and From Stand Sit to and from Stand Contact Guard Assistance, Minimal Assistance,1 Person Assistance,Use of Upper Extremities Equipment Transfer Assistive Device Gait Belt,Front Wheeled Walker Transfers Transfer Destination Toilet Transfer Ability Level of Assist Contact Guard Assistance, Minimal Assistance,1 Person Assistance,Use of Upper Extremities Gait Assessment Gait Gait Assistance Required: Minimum Assistance,1 Person Assist Distance (Feet) 60 Able to Maintain Weight Bearing Status Yes During Gait Assistive Devices Assistive Device Gait Belt,Front Wheeled Walker Orthotic/Prosthetic Devices or Brace: No Gait Deviations General Gait Pattern Antalgic,Decreased Stride Length,Decreased Feet Clearance,Step-to Gait Factors Limiting Gait Function Factors Limiting Gait Function Decreased Activity Tolerance, Decreased Strength,Difficulty Following Directions,Pain,Poor Balance,Poor Safety Awareness Comments Gait Comments Pt needed mod cues. M6 PT-IP Treatment Start: 07/08/19 15:53 Freq: NEEDED Status: Active Protocol: Document 07/11/19 16:18 GGD (Rec: 07/11/19 16:28 GGD [id number]) Physical Therapy Treatment Other Treatments Other Treatment Performed Pt unable to recall back precautions M7 PT-IP Assessment and Plan Start: 07/08/19 15:53 Freq: NEEDED Status: Active Protocol: Document 07/11/19 16:18 TEE (Rec: 07/11/19 16:28 TEE [id number]) PT Summary Assessment and Plan Summary Assessment Summary Pt improving with mobility and needing less assist. He needs cue for safety with FWW. He need min a for bed mobility. Frequency of Treatment Frequency Of Treatment Twice a Day Treatment Plan Physical Therapy Treatment Plan Bed Mobility Training,Transfer Training,Gait Training, Therapeutic Exercise,Post Op Education,Discharge Planning Recommendations To Nursing Amount of Assist Needed 1 Person Assist Discharge Recommendations PT Discharge Recommendations SNF Rehab
--- NOTE | 2019-07-12 12:28 | PM.DS.1 ---
History of Present Illness History of Present Illness Date Patient Seen: 07/12/19 Time Patient Seen: 12:28 Chief complaint: [id number] Narrative: Pain has been moderate to severe. Was having hallucinations yesterday but those have improved. Mobilize well with physical therapy earlier. Discharge Providers Provider Date of admission: 07/08/19 06:08 Discharge Date: 07/12/19 Primary care physician: Stacy Anguiano DO Consults: 07/08/19 07:07 Consult to Respiratory Therapy Evaluate & Treat Comment: Physician Instructions: Evaluate and treat 07/08/19 14:38 Consult to Occupational Therapy Evaluate & Treat Comment: Physician Instructions: Evaluate and treat Consult to Physical Therapy Evaluate & Treat Comment: Physician Instructions: Evaluate and Treat 07/08/19 14:48 Consult to Respiratory Therapy Evaluate & Treat Comment: Sleep Apnea/ CPAP Physician Instructions: Evaluate and treat 07/09/19 14:21 Consult to Dietitian, Adult Routine Comment: Reason For Exam: Poor mobility post op josselin score Discharge provider: Ace Solis PA-C Summary Hospital Course Discharge Diagnosis: [place] [address] Operative Note Patient: Abdulaziz Fields LMR#: [id number] : 9Acct:[id number] Age/Sex: 79 / M Date of Service: 07/08/19 Provider: Hal Roberson MD Operative Date/Time/Diagnoses Date of procedure: 07/08/19 Time of procedure: 12:10 Pre-op diagnosis: Lumbar stenosis with radiculopathy History lumbar laminectomy Post-op diagnosis: same Hospital Course: [place] [address] Operative Note Patient: Abdulaziz Fields LMR#: [id number] : 9Acct:[id number] Age/Sex: 79 / M Date of Service: 07/08/19 Provider: Hal Roberson MD Operative Date/Time/Diagnoses Date of procedure: 07/08/19 Time of procedure: 12:10 Pre-op diagnosis: Lumbar stenosis with radiculopathy History lumbar laminectomy Post-op diagnosis: same Procedure & Clinicians Procedure: L3-4, L4-5 anterior fusion with cage L3-4, L4-5 posterior fusion L3, L4, L5 screws Iliac crest bone graft L3-4 laminectomy L4-5 revision laminectomy Use of microscope Placement of epidural catheter Same procedure as scheduled: Yes Indications: [age] year old male with intractable pain from stenosis. They had failed conservative management and requested operative intervention. Risks and benefits of surgery were discussed and appropriate consents were obtained. Surgeon: Hal Roberson Powder Compounder: Cristina Mcallister Anesthesia Type: General Operative Notes Findings: None Closure Type: primary Specimen(s): none sent Prosthetic devices, grafts, tissues, transplants, or devices: NuVasive MAS Reline screws NuVasive XLIF cages Applied: catheter Blood products transfused: none Patient admitted to the hospital and consented for the above-mentioned procedure. Patient taken to the operating room underwent lumbar fusion. Patient back in his recovery is in stable condition. Patient had some hallucinations yesterday but those are resolving. He had a good session with physical therapy. Physical therapy has recommended senior care facility for further rehab. Status at Discharge Cognitive/behavioral status at discharge: at baseline, oriented Functional status at discharge: uses cane/walker Overall status at discharge: patient is progressing back to baseline Time Spent with Patient Time spent: Less than 30 minutes Exam Vital Signs (past 8 hours): - 07/12/19 04:40 07/12/19 08:38 07/12/19 11:32 Temperature 98.2 F 98 F 98 F Pulse Rate 63 65 78 Respiratory Rate 16 17 19 Blood Pressure 116/61 121/59 L 118/64 Pulse Oximetry 95 92 96 Oxygen Delivery Method Room Air Oxygen Flow Rate 0 Narrative Exam Narrative: 79-year-old male alert and oriented x3. No apparent distress. Resting comfortably in bed. Dressing is intact with mild moisture on the right edge. Sensation grossly intact light touch bilateral lower extremities. Motor function is intact bilaterally. Both legs are warm and dry. Objective Labs Result Diagrams: 07/09/19 04:51 Discharge Plan Discharge Plan Patient Disposition: SNF Transfer to: [facility] Under care of provider: Dr. Roberson Consult as needed: Dental, Hearing, Mental health, Podiatry and Vision Discharge Med Rec/Prescriptions Prescriptions: New acetaminophen 325 mg Tablet 975 mg PO Q8H Qty: 60 RF: 0 docusate sodium [DOK] 100 mg Capsule 100 mg PO BID Qty: 60 RF: 0 hydroxyzine pamoate 25 mg Capsule 25 mg PO Q4HR PRN (Reason: Nausea And Vomiting) Qty: 60 RF: 0 tramadol 50 mg Tablet 50 mg PO QID PRN (Reason: Pain, Moderate (4-6)) Qty: 60 RF: 0 Continued atorvastatin 20 mg Tablet 20 mg PO BEDTIME RF: 0 aspirin 325 mg Tablet 325 mg PO DAILY RF: 0 chlorthalidone 25 mg Tablet 25 mg PO DAILY RF: 0 amlodipine 5 mg Tablet 5 mg PO BEDTIME RF: 0 famotidine 20 mg Tablet 20 mg PO BEDTIME RF: 0 gabapentin 300 mg Capsule 600 mg PO TID RF: 0 Discontinued ibuprofen 200 mg Capsule 400 mg PO Q6H PRN (Reason: Pain) RF: 0 Follow up/Referrals: Stacy Anguiano DO [Primary Care Provider] - Hal Roberson MD [Physician] - Discharge Health Status Brief summary of current health status: Stable status post lumbar fusion Multidrug resistant organism: No MDRO Provider Discharge Instructions Diet: Diet as Tolerated Liquid consistency: Normal/Thin Food texture: Regular Activity: Weight bear as tolerated. No bending, lifting, or twisting. Skin/Wound/Dressing Care Report to your healthcare provider any signs of infection, such as:: chills, fever, night sweats, unusual drainage and unusual redness Dressing: Leave dressing in place, this will be removed at 2 week post operative check. Please call the office if dressing becomes saturated. Special Rehabilitation Services Reason for rehabilitation: Post-operative therapy Rehab type: Physical therapy and Occupational therapy Discharge Data Primary Care Provider: Stacy Anguiano
--- NOTE | 2019-07-12 12:35 | OT.IP.TRT ---
Current Diagnoses Spondylolisthesis, lumbar region (07/08/19) Spinal stenosis, lumbar region with neurogenic claudication (07/08/19) Other specified postprocedural states (07/08/19) Surgery Performed Operation Date: 07/08/19 07:45 Actual Procedures p L34, L45 anterior & posterior instrumented fusion w/ bone graft. L34 laminectomy, L45 revision laminectomy - Hal Roberson MD Occupational Therapy Treatment Note M2 OT-IP Current Condition Start: 07/09/19 17:20 Freq: Status: Active Protocol: Document 07/09/19 17:20 [facility] (Rec: 07/09/19 17:46 [facility] [id number]) Occupational Therapy Current Condition Current Condition Evaluation Date 07/09/19 Treatment Diagnosis Lumbar stenosis with radiculopathy, S/P L3-4, L4-5 ant & post instr. fusion Diagnosis Onset Date 07/08/19 Post Operative Precautions Lumbar Precautions Log Roll,No Twisting,Limit Bending,Lifting Restriction of 10 lbs,Gait Belt above Incisional Area Weight Bearing Status Weight Bearing Status Weight Bear as Tolerated M3 OT- IP Subjective and Pain Start: 07/09/19 17:20 Freq: Status: Active Protocol: Document 07/12/19 12:11 [facility] (Rec: 07/12/19 12:35 [facility] [id number]) OT- Subjective Occupational Therapy Visit Type Type Treatment Note Visit Start Time 10:14 Visit Stop Time 11:09 Total Visit Minutes 55 Occupational Therapy Visit Comments Patient Comments Pt after encouragement agreeable to shower. Patient/Caregiver Goals To get stronger at skilled rehab and go home. OT Pain Assessment Pain When Pain Assessed During Mobility Pain Present Pain Present Pain Reported Location Lower Back Intensity 5 Scale Used Numeric (1 - 10) M4 OT- IP ADL's Start: 07/09/19 17:20 Freq: Status: Active Protocol: Document 07/12/19 12:11 [facility] (Rec: 07/12/19 12:35 [facility] [id number]) OT ADL-Dressing General Eval Lower Body Dressing Ability Minimal Assistance Areas Needing Assistance Socks Assistive Devices Dressing Assistive Devices [employer] Repairer,Sock Aid Comments OT Dressing Comments Pt still needing vc for completeness for LB dressing needs, LOPEZ to get left foot into the brief and slight adjustments to help use socks aid for socks. Pt will continue to benefit to practice with lower body adaptive equipment at skilled rehab. OT ADL-Toileting Comments OT Toileting Comments Pt able to urinate while sitting on the commode, educated since pt has long arms able to lean the side and wipe, otherwise stand to wipe after bowel movements. OT ADL-Bathing Bathing Type Bathing Type Shower General Evaluation Bathing Ability Moderate Assistance Areas Needing Assistance Wash/Dry Back,Wash/Dry Lower Extremities Devices Bathing Equipment Long Handled Sponge or [place], Hand Held Shower Sprayer, Shower Chair with Arms,Grab Bars Comments OT Bathing Comments Pt having to sit from most of the shower and able to use grab bars to stand and needing assist for completeness and safety. M6 OT- IP Functional Cognition Start: 07/09/19 17:20 Freq: Status: Active Protocol: Document 07/12/19 12:11 [facility] (Rec: 07/12/19 12:35 [facility] [id number]) Cognitive Factors Limiting Selfcare Function Cognitive Ability Level of Alertness Alert,Confusional State Ability to Follow Commands Able to Follow One Step Commands Memory Description Short Term Impaired Safety Awareness Decreased Recall of Precautions,Decreased Ability to Apply Precautions, Underestimates Need for Assistance Problem Solving Ability Unable to Identify Errors, Needs Assist to Identify Solutions Executive Function Ability Unable to Remember Details Cognitive Comments Cognitive Assessment Comments Pt able to follow directions better today and tolerating showering and more practice with lower body dressing needs . Pt still needing vc for incorporation of back precautions. M7 OT- IP Mobility and Balance Start: 07/09/19 17:20 Freq: Status: Active Protocol: Document 07/12/19 12:11 [facility] (Rec: 07/12/19 12:35 [facility] [id number]) OT- Bed Mobility Assessment Supine to Sit Supine to Sit Assist Minimal Assistance,1 Person Assistance OT-Transfer Assessment Sit to and From Stand Sit to and from Stand Contact Guard Assistance,1 Person Assistance Transfers Transfer Ability Contact Guard Assistance, Minimal Assistance,1 Person Assistance Technique Transfer Destination Chair,Shower Stall,Toilet Devices Transfer Assistive Devices Gait Belt,Front Wheeled Walker Comments Mobility Comments Better with bed mobility today only LOPEZ today, SBA to sit at edge of bed with good safety. OT- Balance Assessment Sitting Balance and Reactions Static Sitting Balance Ability Good Dynamic Sitting Balance Ability Fair Standing Balance and Reactions Static Standing Balance Ability Fair M8 OT- IP Objective Assessments Start: 07/09/19 17:20 Freq: Status: Active Protocol: Document 07/09/19 17:20 [facility] (Rec: 07/09/19 17:46 [facility] [id number]) OT Gross Range of Motion Upper Extremity Range of Motion ROM Impairments Not able to fully assess at this time time. OT Strength Comments Strength Comments Not able to fully assess at this time. OT-Muscle Tone Assessment Muscle Tone WNL Yes M9 OT- IP Assessment and Plan Start: 07/09/19 17:20 Freq: Status: Active Protocol: Document 07/12/19 12:11 [facility] (Rec: 07/12/19 12:35 [facility] [id number]) OT Summary Assessment and Plan Potential Rehabilitation Potential Good Summary Progress Towards Goals Progressing Toward Goals Assessment Summary Pt able to tolerate shower and practice with lower body dressing. Pt thinking better, however still needing vc for safety awareness. Pt to go to skilled rehab today. Discharge Recommendations OT Discharge Recommendations SNF Rehab Home Equipment Needs provided rn digestive, sock aid, long shoe horn and long bath sponge
--- NOTE | 2019-07-12 13:10 | CM.DPC ---
DCP Discharge SNF Per Ortho PA, pt medically stable to d/c to SNF today and completed d/c and signed med rec. CHITO called Yadira at [facility] and updated on d/c orders and confirmed they can still accept today. SW received a call from the emids that was scheduled for transport today by [facility] at 1330 and they confirm they can still provide that transport. SW and [employer] CREW MEMBER met bedside with pt and explained role and pt more alert and oriented today and SW discussed plan of [facility] rehab before return home and [employer] INSTALLATION CREW MEMBER emphasized the need to manage home stairs. Pt slightly remembered discussing rehab recommendation the past couple days and SW and [employer] INSTALLATION CREW MEMBER explained rehab stay again and pt still agreeable. SW discussed d/c time and plan and pt agreeable but very tired after his shower with OT so gave verbal signature on his Medicare Message. Pt states he spoke to his son this morning and was able to dial and contact the son himself and SW attempted to call son two times and vm was full. CHITO faxed [facility], signed med rec, scripts, d/c summary to [facility] to review and updated RN, SLEEVE SEWER, NTL. Plan: Patient to d/c to [facility] at 1330 via w/c van prior to safe return home with adult son. Shayna Arthur, CONSULTING SYSTEMS ENGINEER
--- NOTE | 2019-07-12 14:26 | PC.NURSE ---
Transfer: IV dc'd intact. All belongings collected and sent with patient and his son at discharge. Assisted into wheelchair, packet given to transport staff (including scripts), taken out by transport staff accompanied by his son. Report called to Nataliia at [facility].
== END 2019-07-12 14:29 | DRG 455 ==
LOC: AC 10:42 → ICU 14:00 → AC 07-10 12:24
PROVIDERS: Admitting Provider Orthopaedic Surgery; PCP Family Medicine; Visit Provider Orthopaedic Surgery
PROC: 0SG00A0 Fusion of Lumbar Vertebral Joint with Interbody Fusion Device, Anterior Approach, Anterior Column, Open Approach (ICD-10-PCS; CPT 22558; principal; 2019-07-08 07:45)
DX: M48.062 Spinal stenosis, lumbar region with neurogenic claudication (principal); M43.16 Spondylolisthesis, lumbar region; K21.9 Gastro-esophageal reflux disease without esophagitis; F32.9 Major depressive disorder, single episode, unspecified; I25.10 Atherosclerotic heart disease of native coronary artery without angina pectoris; I44.7 Left bundle-branch block, unspecified; I10 Essential (primary) hypertension; E78.5 Hyperlipidemia, unspecified; G47.33 Obstructive sleep apnea (adult) (pediatric); T40.605A Adverse effect of unspecified narcotics, initial encounter; R41.0 Disorientation, unspecified; Z87.891 Personal history of nicotine dependence
CPT/HCPCS: 36415; 72100; 72131; 76000; 85014; 85018; 87797; 94762; 97116; 97163; 97165; 97530; 97535; C1776; J0330; J0595; J0690; J1170; J2060; J2250; J2274; J2405; J2704; J3010; J3410